=== PATIENT | male | born 1960 | race Caucasian/White ===

== ENCOUNTER 2017-01-23 08:56 | Emergency (ER) | payer BC ==
[~2017-01-23] VITALS: Ht 175.3 cm; Wt 87.8 kg
[~2017-01-23 08:56] MED LIST: CYAN10004 PO; HYDR2TAB48 PO; LORA-741 PO; MULT-506 PO; OMEG10007 PO; SERT1TAB71 PO; TRAM-10 PO; [UNRECOGNIZED DRUG - CODE] PO
[2017-01-23 09:00] VITALS: TEMP 37.1; Ht 175.3 cm; Wt 87.8 kg
[2017-01-23] MEDS ORDERED: SODIUM CHLORIDE 0.9% 1000ML 1,000 ML IV ONE (09:31)
[2017-01-23] MEDS ORDERED: SODIUM CHLORIDE 0.9% 1000ML 1,000 ML IV STA (09:31)
--- NOTE | 2017-01-23 09:31 | EMERGENCY ROOM VISIT NOTE ---
History Report prepared by Erik: Marga Henley Under the Supervision of: Dr. Cali An M.D. First contact with patient: 09:18 Chief Complaint: RIB PAIN Stated Complaint: RIBS HURT History of Present Illness The patient is a 56 year old male who presents to the Emergency Room with complaints of constant bilaterally rib pain with deep breathing beginning last night. The patient states that he was going to bed when the patient states the pain began. 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 The patient states that he has not been lifting more than usual. He denies a history of cardiac issues, inhaler use, blood clot history, history of collapsed lungs or family history of clots. The patient is a current smoker. He notes he recently had a stress test that was normal. Source of History: patient Onset: last night Position: other (bilateral ribs) Timing: constant Modifying Factors (Worsening): breathing Note: He denies a history of cardiac issues, inhaler use, blood clot history, history of collapsed lungs or family history of clots. Review of Systems See HPI for pertinent positives & negatives. A total of 10 systems reviewed and were otherwise negative. Past Medical & Surgical Medical Problems: (1) Hypertension Old medical records were reviewed. Nurse's notes were reviewed and I agree with. No history of cardiac disease or blood clots Family History Heart disease Hypertension Social History Smoking Status: Current Every Day Smoker Alcohol Use: none Marital Status: Housing Status: lives with significant other Occupation Status: employed Current/Historical Medications Scheduled Atorvastatin (Lipitor), 20 MG PO QPM Bupropion Hcl (Wellbutrin Xl), 1 TAB PO DAILY Lisinopril (Zestril), 20 MG PO DAILY Multivitamin (Multivitamin), 1 TAB PO QAM Sertraline Hcl (Zoloft), 50 MG PO QAM Allergies Coded Allergies: No Known Allergies (Unverified , 01/23/17) Physical Exam Vital Signs Date Time Temp Pulse Resp B/P (MAP) Pulse Ox O2 Delivery O2 Flow Rate FiO2 01/23/17 13:08 78 17 133/81 96 01/23/17 12:07 75 20 141/80 95 Room Air 01/23/17 10:38 78 16 140/79 93 Room Air 01/23/17 09:28 100 01/23/17 09:00 37.1 101 16 141/82 94 Room Air Physical Exam General: Well developed well nourished in no acute distress non ill appearing middle age male, breathing comfortably on room air. Normal speech HEENT: Normal cephalic atraumatic. Pupils are equal round and reactive to light. Extraocular movements are intact. Oropharynx is pink with moist mucous membranes. No swelling of the mouth lips or tongue. Neck: Supple with a midline trachea. No meningeal signs or stiffness, no JVD or bruits. No Stridor. Chest: Clear to auscultation bilaterally. No wheezes or rhonchi. No increased work of breathing. Heart: regular rate and rhythm. Abdomen: Soft nontender, nondistended without rebound guarding or rigidity. Extremities: No cyanosis clubbing or edema. No calf tenderness or assymetry Spine/Back. Non tender to palpation. No CVA tenderness Skin: Good turgor without rashes. Neurologic exam: Cranial nerves two through 12 are intact. Motor and sensation are intact and symmetrical throughout. Medical Decision & Procedures ER Provider Diagnostic Interpretation: Radiology results as stated below per my review and radiologist interpretation: CHEST ONE VIEW PORTABLE CLINICAL HISTORY: Chest pain. Rib pain. COMPARISON STUDY: Chest radiograph July 28, 2015. FINDINGS: Lung volumes are normal. Lungs are clear. There is no pneumothorax or pleural effusion. Cardiac size is at the upper limits of normal. There is no evidence of pulmonary edema. IMPRESSION: No acute cardiopulmonary findings. Electronically signed by: Charlie Viramontes M.D. 01/23/2017 10:03 AM Dictated Date/Time: 01/23/2017 9:[address] ANGIOGRAM OF THE CHEST CLINICAL HISTORY: Atypical chest pain. COMPARISON STUDY: Chest x-ray dated 01/23/2017. TECHNIQUE: Following the IV administration of 93 cc of Optiray 320, CT angiogram of the chest was performed from the upper abdomen to the thoracic inlet utilizing the pulmonary embolus protocol. Images are reviewed in the axial, sagittal, and coronal planes. 3-D MIPS images are created and assessed. IV contrast was administered without complication. CT DOSE: 344.18 mGy.cm FINDINGS: Thyroid: Imaged portions of the thyroid gland are normal in size and attenuation. Thoracic aorta: There is atherosclerotic calcification of the thoracic aorta, which is normal in caliber and demonstrates standard 3-vessel arch anatomy. No dissection is seen. Pulmonary vasculature: The pulmonary trunk is dilated, measuring 3.2 cm in diameter. This suggests pulmonary artery hypertension. There are no filling defects identified in main, lobar, or segmental pulmonary branches to suggest pulmonary embolus. Heart: The heart is enlarged and without pericardial effusion. There are scattered coronary artery calcifications. Lungs and pleural spaces: There is no airspace consolidation typical for pneumonia or pleural effusion. Dependent atelectasis is noted. Minimal secretions are seen within the distal trachea. Mediastinum: There is mediastinal lymphadenopathy. An enlarged AP window node on image #176 measures 1.4 cm short axis. A right paratracheal node image #173 measures 1.5 cm in short axis. A subcarinal node on image #136 measures 2.4 cm in short axis. There are calcification containing prevascular nodes. Fiona: Clear. Axillae: There is no axillary lymphadenopathy. Upper abdomen: There is a small hiatal hernia. A mildly enlarged gastrohepatic lymph node is seen in July 14 and measures 1.2 x 1.3 cm. Partially visualized upper abdominal viscera is otherwise within normal limits. Skeletal structures: The skeletal structures are osteopenic. Advanced arthritic change is seen in the left shoulder. Degenerative change is also seen throughout the thoracic spine. No lytic or blastic bony lesions are seen. IMPRESSION: 1. There is no evidence of pulmonary embolus in the main, lobar, or segmental pulmonary arteries. 2. Cardiomegaly with evidence of pulmonary artery hypertension. 3. There is no airspace consolidation or pleural effusion. Dependent atelectasis is observed. 4. Mildly enlarged mediastinal lymph nodes are of indeterminant etiology and significance. There is also mildly enlarged gastrohepatic node which is seen in the partially imaged upper abdomen. Clinical correlation will be essential. Electronically signed by: Richie Rausch M.D. 01/23/2017 12:04 PM Dictated Date/Time: 01/23/2017 11:57 AM Laboratory Results 01/23/17 09:35 Red Blood Count 4.58, Mean Corpuscular Volume 86.9, Mean Corpuscular Hemoglobin 29.7, Mean Corpuscular Hemoglobin Concent 34.2, Mean Platelet Volume 10.5, Neutrophils (%) (Auto) 73.3, Lymphocytes (%) (Auto) 17.5, Monocytes (%) (Auto) 8.0, Eosinophils (%) (Auto) 0.9, Basophils (%) (Auto) 0.1, Neutrophils # (Auto) 6.37, Lymphocytes # (Auto) 1.52, Monocytes # (Auto) 0.70, Eosinophils # (Auto) 0.08, Basophils # (Auto) 0.01 01/23/17 09:35 Test 01/23/17 09:35 01/23/17 09:41 White Blood Count 8.70 K/uL (4.8-10.8) Red Blood Count 4.58 M/uL (4.7-6.1) Hemoglobin 13.6 g/dL (14.0-18.0) Hematocrit 39.8 % (42-52) Mean Corpuscular Volume 86.9 fL (80-100) Mean Corpuscular Hemoglobin 29.7 pg (25-34) Mean Corpuscular Hemoglobin Concent 34.2 g/dl (32-36) Platelet Count 216 K/uL (130-400) Mean Platelet Volume 10.5 fL (7.4-10.4) Neutrophils (%) (Auto) 73.3 % Lymphocytes (%) (Auto) 17.5 % Monocytes (%) (Auto) 8.0 % Eosinophils (%) (Auto) 0.9 % Basophils (%) (Auto) 0.1 % Neutrophils # (Auto) 6.37 K/uL (1.4-6.5) Lymphocytes # (Auto) 1.52 K/uL (1.2-3.4) Monocytes # (Auto) 0.70 K/uL (0.11-0.59) Eosinophils # (Auto) 0.08 K/uL (0-0.5) Basophils # (Auto) 0.01 K/uL (0-0.2) RDW Standard Deviation 43.4 fL (36.4-46.3) RDW Coefficient of Variation 13.7 % (11.5-14.5) Immature Granulocyte % (Auto) 0.2 % Immature Granulocyte # (Auto) 0.02 K/uL (0.00-0.02) Prothrombin Time 11.4 SECONDS (9.0-12.0) Prothromb Time International Ratio 1.1 (0.9-1.1) Activated Partial Thromboplast Time 34.7 SECONDS (21.0-31.0) Partial Thromboplastin Ratio 1.3 Anion Gap 8.0 mmol/L (3-11) Est Creatinine Clear Calc Drug Dose 122.1 ml/min Estimated GFR () 119.7 Estimated GFR (Non- 103.3 BUN/Creatinine Ratio 13.0 (10-20) Calcium Level 8.4 mg/dl (8.5-10.1) Total Bilirubin 0.6 mg/dl (0.2-1) Direct Bilirubin 0.1 mg/dl (0-0.2) Aspartate Amino Transf (AST/SGOT) 13 U/L (15-37) Alanine Aminotransferase (ALT/SGPT) 27 U/L (12-78) Alkaline Phosphatase 75 U/L (45-117) Total Creatine Kinase 62 U/L (39-308) Creatine Kinase MB < 0.5 ng/ml (0.5-3.6) Creatine Kinase MB Ratio (0-3.0) Total Protein 7.8 gm/dl (6.4-8.2) Albumin 3.7 gm/dl (3.4-5.0) Lipase 91 U/L (73-393) Bedside D-Dimer > 450 ng/mlFEU (0-450) Bedside Troponin I 0.000 ng/ml (0-0.045) Laboratory studies as stated above per my review. Medications Administered Medications (Trade) Dose Ordered Sig/Vira Route Start Time Stop Time Status Last Admin Dose Admin Sodium Chloride 1,000 ml @ 999 mls/hr Q1H1M STAT IV 01/23/17 09:31 01/23/17 10:31 DC 01/23/17 09:31 999 MLS/HR Sodium Chloride 1,000 ml @ 150 mls/hr Q6H40M ONCE IV 01/23/17 09:31 01/23/17 13:17 DC 01/23/17 09:31 150 MLS/HR ECG Indication: other (rib pain) Rate (beats per minute): 87 Rhythm: normal sinus Findings: no acute ischemic change, no ectopy, other (early repolarization changes present on previous) Change: no significant change (from 07/25/15) ED Course 0923: Past medical records reviewed. The patient was evaluated in room B8, and a complete history and physical examination were performed. 0931: Sodium Chloride 1,000 ml @ 150 mls/hr IV, Sodium Chloride 1,000 ml @ 999 mls/hr IV. 1016: I reevaluated the patient. His D Dimer is elevated so CT scan was ordered. 1234: The patient is resting comfortably. I discussed his test results and lymph nodes with him. 1245: Upon reevaluation, the patient is hemodynamically stable. I discussed the results and treatment plan with him. He verbalized agreement of the treatment plan. The patient was discharged home. Medical Decision Differentials include, but are not limited to; musculoskeletal pain, PE, cardiac disease, pneumothorax, electrolyte or metabolic abnormalities. Medication Reconciliation: I attest that I have personally reviewed the patient' s current medication list. Blood pressure Screening: Patient was found to have normal blood pressure on screening and does not require follow-up. This patient comes in as described above. He was placed in room B9. Here for treatment and evaluation of pain bilaterally in his ribs. It is worse with taking a deep breath and he appears in no distress. 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 There is no central chest pain. IV access established and EKG and blood work were obtained as well as a chest x-ray. Chest x-ray does not show any evidence suggest congestive heart failure, pneumonia, or pneumothorax. His cardiac enzymes are normal and his symptoms are atypical for cardiac disease. He has no acute electrolyte or metabolic abnormalities and has nothing to suggest liver or gallbladder or pancreas disease. His d-dimer is elevated and in light of this, I did do a chest CT there is no evidence of PE. He did declined any pain medication seems comfortable while he is here. I do think that this is most likely musculoskeletal. He should use ibuprofen or another NSAID if needed for pain or inflammation. Return if: increasing pain, worsening of symptoms, shortness of breath, any new problems or concerns. Impression Primary Impression: Acute chest pain Additional Impression: Rib pain Scribe Attestation The scribe's documentation has been prepared under my direction and personally reviewed by me in its entirety. I confirm that the note above accurately reflects all work, treatment, procedures, and medical decision making performed by me. Departure Information Dispostion Home / Self-Care Referrals Krista Alonzo C.R.N.P. (PCP) Forms HOME CARE DOCUMENTATION FORM, IMPORTANT VISIT INFORMATION, WORK / SCHOOL INSTRUCTIONS Patient Instructions My [facility] Additional Instructions Rest. Drink plenty of fluids. Return if: Increasing pain, worsening of symptoms, shortness of breath, fever or chills, any new problems or concerns Follow-up with your doctor this week for recheck, keep your appointment on Monday. Your lymph nodes are mildly enlarged in your chest and you may need further testing or monitoring for this and ensure that you see your doctor for this. Problem Qualifiers
[2017-01-23 10:00] LABS: BASO % 0.1 %; BASO ABS # 0.01 K/uL (0-0.2); COMPLETE YES; EOS % 0.9 %; HEMATOCRIT 39.8 % (42-52); IG% 0.2 %; LYMPH % 17.5 %; LYMPH ABS # 1.52 K/uL (1.2-3.4); MEAN CELL VOLUME 86.9 fL (80-100); MEAN CORPUSCULAR HEMOGLOBIN 29.7 pg (25-34); MEAN CORPUSCULAR HGB CONC 34.2 g/dl (32-36); MEAN PLATELET VOLUME 10.5 fL (7.4-10.4); NEUT % 73.3 %; PLATELET COUNT 216 K/uL (130-400); RED BLOOD COUNT 4.58 M/uL (4.7-6.1)
--- NOTE | 2017-01-23 10:04 | DIAGNOSTIC IMAGING REPORT ---
CHEST ONE VIEW PORTABLE CLINICAL HISTORY: Chest pain. Rib pain. COMPARISON STUDY: Chest radiograph July 28, 2015. FINDINGS: Lung volumes are normal. Lungs are clear. There is no pneumothorax or pleural effusion. Cardiac size is at the upper limits of normal. There is no evidence of pulmonary edema. IMPRESSION: No acute cardiopulmonary findings. Electronically signed by: Charlie Viramontes M.D. 01/23/2017 10:03 AM Dictated Date/Time: 01/23/2017 9:51 AM
[2017-01-23 10:09] LABS: INR 1.1 (0.9-1.1); PARTIAL THROMBOPLASTIN RATIO 1.3; PROTHROMBIN TIME (PATIENT) 11.4 SECONDS (9.0-12.0)
[2017-01-23] MEDS ORDERED: LISI40TA PO (10:17)
[2017-01-23 10:21] LABS: ALT/SGPT 27 U/L (12-78); AST/SGOT 13 U/L (15-37); BLOOD UREA NITROGEN 10 mg/dl (7-18); CALCIUM 8.4 mg/dl (8.5-10.1); CARBON DIOXIDE 27 mmol/L (21-32); CHLORIDE 102 mmol/L (98-107); CREATININE 0.75 mg/dl (0.60-1.40); GLUCOSE 108 mg/dl (70-99); POTASSIUM 3.9 mmol/L (3.5-5.1); SODIUM 137 mmol/L (136-145)
[2017-01-23] MEDS ORDERED: ATOR-22 PO (10:24)
[2017-01-23] MEDS ORDERED: BUPRTAB PO (10:24)
[2017-01-23 10:26] LABS: ALKALINE PHOSPHATASE 75 U/L (45-117)
[2017-01-23] MEDS ORDERED: OPTIRAY 320 IV PRN (11:15)
--- NOTE | 2017-01-23 12:05 | DIAGNOSTIC IMAGING REPORT ---
CT ANGIOGRAM OF THE CHEST CLINICAL HISTORY: Atypical chest pain. COMPARISON STUDY: Chest x-ray dated 01/23/2017. TECHNIQUE: Following the IV administration of 93 cc of Optiray 320, CT angiogram of the chest was performed from the upper abdomen to the thoracic inlet utilizing the pulmonary embolus protocol. Images are reviewed in the axial, sagittal, and coronal planes. 3-D MIPS images are created and assessed. IV contrast was administered without complication. CT DOSE: 344.18 mGy.cm FINDINGS: Thyroid: Imaged portions of the thyroid gland are normal in size and attenuation. Thoracic aorta: There is atherosclerotic calcification of the thoracic aorta, which is normal in caliber and demonstrates standard 3-vessel arch anatomy. No dissection is seen. Pulmonary vasculature: The pulmonary trunk is dilated, measuring 3.2 cm in diameter. This suggests pulmonary artery hypertension. There are no filling defects identified in main, lobar, or segmental pulmonary branches to suggest pulmonary embolus. Heart: The heart is enlarged and without pericardial effusion. There are scattered coronary artery calcifications. Lungs and pleural spaces: There is no airspace consolidation typical for pneumonia or pleural effusion. Dependent atelectasis is noted. Minimal secretions are seen within the distal trachea. Mediastinum: There is mediastinal lymphadenopathy. An enlarged AP window node on image #176 measures 1.4 cm short axis. A right paratracheal node image #173 measures 1.5 cm in short axis. A subcarinal node on image #136 measures 2.4 cm in short axis. There are calcification containing prevascular nodes. Fiona: Clear. Axillae: There is no axillary lymphadenopathy. Upper abdomen: There is a small hiatal hernia. A mildly enlarged gastrohepatic lymph node is seen in July 14 and measures 1.2 x 1.3 cm. Partially visualized upper abdominal viscera is otherwise within normal limits. Skeletal structures: The skeletal structures are osteopenic. Advanced arthritic change is seen in the left shoulder. Degenerative change is also seen throughout the thoracic spine. No lytic or blastic bony lesions are seen. IMPRESSION: 1. There is no evidence of pulmonary embolus in the main, lobar, or segmental pulmonary arteries. 2. Cardiomegaly with evidence of pulmonary artery hypertension. 3. There is no airspace consolidation or pleural effusion. Dependent atelectasis is observed. 4. Mildly enlarged mediastinal lymph nodes are of indeterminant etiology and significance. There is also mildly enlarged gastrohepatic node which is seen in the partially imaged upper abdomen. Clinical correlation will be essential. Electronically signed by: Richie Rausch M.D. 01/23/2017 12:04 PM Dictated Date/Time: 01/23/2017 11:57 AM
[2017-01-23 13:08] VITALS: BP 133/81; PULSE 78; O2SAT 96
== END 2017-01-23 13:00 | disposition home or self-care (01) ==
LOC: C.EDB 08:57
DX: R07.9 Chest pain, unspecified (principal); R07.81 Pleurodynia; I10 Essential (primary) hypertension; F17.200 Nicotine dependence, unspecified, uncomplicated; Z79.899 Other long term (current) drug therapy; Z82.49 Family history of ischemic heart disease and other diseases of the circulatory system

== ENCOUNTER → 2017-02-11 | Outpatient (CLI) | payer BC ==
[~2017-02-11] MED LIST changes: +ATOR-22 PO; +BUPRTAB PO; -CYAN10004 PO; -HYDR2TAB48 PO; +LISI40TA PO; -LORA-741 PO; -OMEG10007 PO; -TRAM-10 PO; -[UNRECOGNIZED DRUG - CODE] PO
[2017-02-11 08:44] LABS: ALT/SGPT 44 U/L (12-78); AST/SGOT 15 U/L (15-37); BLOOD UREA NITROGEN 15 mg/dl (7-18); BUN/CREATININE RATIO 17.9 (10-20); CALCIUM 8.9 mg/dl (8.5-10.1); CARBON DIOXIDE 28 mmol/L (21-32); CHLORIDE 103 mmol/L (98-107); CHOLESTEROL 123 mg/dl (0-200); CREATININE 0.81 mg/dl (0.60-1.40); GLUCOSE 135 mg/dl (70-99); POTASSIUM 3.8 mmol/L (3.5-5.1); SODIUM 139 mmol/L (136-145)
[2017-02-11 08:55] LABS: CHOLESTEROL/HDL RATIO 3.7; HDL CHOLESTEROL 33 mg/dl; LDL CHOLESTEROL CALCULATED 79 mg/dl; TRIGLYCERIDES 56 mg/dl (0-150); VERY LOW DENSITY LIPOPROT CALC 11 mg/dl
== END | disposition home or self-care (01) ==
LOC: C.LAB 07:07
PROVIDERS: ATTEND Nurse Practitioner Adult Health
DX: R53.83 Other fatigue (principal); E78.5 Hyperlipidemia, unspecified

== ENCOUNTER → 2017-03-11 | Outpatient (CLI) | payer BC ==
[2017-03-11 08:47] LABS: BASO % 0.3 %; BASO ABS # 0.02 K/uL (0-0.2); COMPLETE YES; EOS % 4.2 %; HEMATOCRIT 41.8 % (42-52); LYMPH % 28.7 %; LYMPH ABS # 1.76 K/uL (1.2-3.4); MEAN CELL VOLUME 86.2 fL (80-100); MEAN CORPUSCULAR HEMOGLOBIN 29.3 pg (25-34); MEAN PLATELET VOLUME 11.3 fL (7.4-10.4); MONO % 9.4 %; NEUT % 57.4 %; PLATELET COUNT 184 K/uL (130-400); RED BLOOD COUNT 4.85 M/uL (4.7-6.1); WHITE BLOOD COUNT 6.14 K/uL (4.8-10.8)
[2017-03-11 09:11] LABS: ALT/SGPT 37 U/L (12-78); AST/SGOT 22 U/L (15-37); BLOOD UREA NITROGEN 23 mg/dl (7-18); BUN/CREATININE RATIO 30.3 (10-20); CALCIUM 9.4 mg/dl (8.5-10.1); CARBON DIOXIDE 28 mmol/L (21-32); CHLORIDE 106 mmol/L (98-107); CREATININE 0.76 mg/dl (0.60-1.40); GLUCOSE 95 mg/dl (70-99); SODIUM 139 mmol/L (136-145)
[2017-03-11 09:12] LABS: ALB/GLOB RATIO 1.1 (0.9-2); ALKALINE PHOSPHATASE 66 U/L (45-117)
[2017-03-11 09:45] LABS: LYME DISEASE AB IGG NEG (NEG); LYME DISEASE AB IGM NEG (NEG)
[2017-03-14 21:35] LABS: VARICELLA ZOS VIR IGM AB <=0.90 (<=0.90)
== END | disposition home or self-care (01) ==
LOC: C.LAB 07:36
PROVIDERS: ATTEND Nurse Practitioner Adult Health
DX: M25.50 Pain in unspecified joint (principal); R59.0 Localized enlarged lymph nodes

== ENCOUNTER → 2017-05-05 | Outpatient (CLI) | payer BC ==
[~2017-05-05] MED LIST changes: +OPTIRAY 320 IV PRN
--- NOTE | 2017-05-05 13:07 | DIAGNOSTIC IMAGING REPORT ---
ADDENDUM Findings should read as follows.: Largest node inferior to the casie is now 8 mm. Electronically signed by: Samuel Edouard M.D. 05/05/2017 1:09 PM Dictated Date/Time: 05/05/2017 1:08 PM ORIGINAL REPORT (CHEST) THORAX WITH CT DOSE: 380.39 mGycm HISTORY: Adenopathy R59.0 Mediastinal lymphadenopathy be done in early april TECHNIQUE: Multiaxial CT images of the chest were performed following the intravenous administration of contrast. A dose lowering technique was utilized adhering to the principles of ALARA. COMPARISON: 01/23/2017 FINDINGS: Large is no evidence of casie region is 8 mm. Largest aortopulmonary window node measures 1.9 cm. Overall volume is diminished. Limited evaluation of the upper abdomen is unremarkable. IMPRESSION: 1. Improved adenopathy with residual kavon change improved in volume by 50%. 2. Lungs remain clear. 3. Basilar atelectatic change in the prior study has resolved. The above report was generated using voice recognition software. It may contain grammatical, syntax or spelling errors. Electronically signed by: Samuel Edouard M.D. 05/05/2017 1:05 PM Dictated Date/Time: 05/05/2017 1:00 PM
== END | disposition home or self-care (01) ==
LOC: C.CTS 12:34
PROVIDERS: ATTEND Internal Medicine Pulmonary Disease
DX: R59.0 Localized enlarged lymph nodes (principal)

== ENCOUNTER 2019-02-27 19:25 | Inpatient (IN) ==
[2019-02-27] MEDS ORDERED: ONDANSETRON INJ 2 MG/ML 2 ML VIAL IV STA (19:38)
[2019-02-27 19:45] LABS: Basophils # (auto) 0.02 K/uL (0-0.2); Basophils % (auto) 0.2 %; Eosinophils # (auto) 0.16 K/uL (0-0.5); Eosinophils % (auto) 1.7 %; Hematocrit (blood only) 40.2 % (42-52); Hemoglobin 13.9 g/dL (14.0-18.0); Immature Granulocytes # (auto) 0.02 K/uL (0.00-0.02); Immature Granulocytes % (auto) 0.2 %; Lymphocytes # (auto) 3.01 K/uL (1.2-3.4); Lymphocytes % (auto) 32.7 %; Mean Corpuscular Hgb Conc 34.6 g/dL (32-36); Mean Corpuscular Volume 86.3 fL (80-100); Mean Platelet Volume 10.9 fL (7.4-10.4); Monocytes # (auto) 1.11 K/uL (0.11-0.59); Monocytes % (auto) 12.1 %; Neutrophils # (auto) 4.89 K/uL (1.4-6.5); Neutrophils % (auto) 53.1 %; Platelet Count 280 K/uL (130-400); RDW Coefficient of Variation 13.9 % (11.5-14.5); RDW Standard Deviation 43.2 fL (36.4-46.3); Red Blood Count 4.66 M/uL (4.7-6.1); White Blood Count 9.21 K/uL (4.8-10.8)
[2019-02-27] MEDS ORDERED: SODIUM CHLORIDE 0.9% 1000ML 1,000 ML IV SCH (19:45)
[2019-02-27 20:04] LABS: Alanine Aminotransferase 35 U/L (12-78); Albumin Level 4.5 gm/dl (3.4-5.0); Aspartate Aminotransferase 23 U/L (15-37); BUN Creatinine Ratio 10.7 (10-20); Blood Urea Nitrogen 23 mg/dl (7-18); Calcium 9.5 mg/dl (8.5-10.1); Carbon Dioxide 26 mmol/L (21-32); Chloride 103 mmol/L (98-107); Est GFR (African American) 37.4; Est GFR (Non-African American) 32.2; Glucose 116 mg/dl (70-99); Magnesium 2.3 mg/dl (1.8-2.4); Potassium 3.5 mmol/L (3.5-5.1); Sodium 137 mmol/L (136-145)
[2019-02-27 20:14] LABS: Albumin Globulin Ratio 1.2 (0.9-2); Alkaline Phosphatase 73 U/L (45-117); Bilirubin,Total 0.4 mg/dl (0.2-1); Globulin 3.7 gm/dl (2.5-4.0); Total Protein 8.2 gm/dl (6.4-8.2); Troponin I < 0.015 ng/ml (0-0.045)
[2019-02-27 20:27] LABS: T4 Free Thyroxine 1.03 ng/dl (0.8-1.6)
[2019-02-27 20:56] LABS: Partial Thromboplastin Ratio 1.1; Partial Thromboplastin Time 29.8 Seconds (21.0-31.0)
[2019-02-27] MEDS ORDERED: SODIUM CHLORIDE 0.9% 1000ML 1,000 ML IV ONE (21:23)
--- NOTE | 2019-02-27 23:08 | History & Physical Report ---
Date of Service February 27, 2019 Assessment & Plan (1) Near syncope: Near syncopal episode, likely vasovagal associated with decreased volume state and dehydration Present on Admission?: Yes (2) Acute kidney injury: Acute kidney injury/moderate dehydration- Creatinine upon admission was 2.19, with baseline 0.90. Aggressively rehydrating with IV fluids in the ED, and continue once admitted. Repeat laboratories in a.m. Hold lisinopril and NSAIDs ibuprofen for now. Present on Admission?: Yes (3) Dehydration: See above. Present on Admission?: Yes (4) Lumbar postlaminectomy syndrome: Patient on some days tends to use significant amounts of ibuprofen, which when combined with the VENKATA inhibitor lisinopril and relative dehydration, resulted in acute kidney injury today. He has been prescribed gabapentin 300 mg p.o. 3 times daily, but he only takes it in the morning. My advice is to take the gabapentin as directed at 300 mg p.o. 3 times daily, and minimize ibuprofen usage. Present on Admission?: Yes (5) Hyperlipidemia: Continue atorvastatin 20 mg every morning Present on Admission?: Yes (6) Hypertension: Will hold lisinopril 40 mg every morning due to acute kidney injury Present on Admission?: Yes (7) Depression: Continue sertraline 50 mg every morning. Present on Admission?: Yes History of Present Illness Chief Complaint: The patient presents to the emergency department with an episode of dizziness and nearly passing out. Primary Care Provider: Flaquito Worley MD The patient is a 58-year-old male with a past medical history including hyperlipidemia, chronic low back pain, hypertension and depression, who initially presented to the emergency department on 02/16/2019, with similar symptoms as of today, with lightheadedness, dizziness and near syncope. 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 He reports that upon awakening this morning he felt normal. When he went to work, he did take ibuprofen 600 mg 2 times, and was trying to keep up with his water intake on a hot day outside, and appeared to be significantly dehydrated upon arrival. He also takes lisinopril daily as directed. Gabapentin prescription has been written for 300 mg 3 times daily, but he only takes it in the morning. Allergies Allergy/AdvReac Type Severity Reaction Status Date / Time No Known Allergies Allergy Verified 02/27/19 20:06 Home Medications Home Medications Medication Instructions Recorded Confirmed Type atorvastatin 20 mg PO QAM 08/15/18 02/27/19 History lisinopril 40 mg PO QAM 08/15/18 02/27/19 History multivitamin 1 tab PO QAM 08/15/18 02/27/19 History sertraline 50 mg PO QAM 08/15/18 02/27/19 History gabapentin 300 mg PO QAM 02/16/19 02/27/19 History ibuprofen [Advil] 400 - 600 mg PO Q6H PRN 02/16/19 02/27/19 History Past Med/Surg History Medical History Lumbar disc herniation (Chronic) Lumbar radiculopathy (Chronic) Lumbar postlaminectomy syndrome (Chronic) Hyperlipidemia (Chronic) Hypertension (Chronic) Depression (Chronic) Degenerative disc disease (Chronic) Osteoarthritis (Chronic) Hypertension (Chronic) Neck pain (Resolved) Tendinitis, de Quervain's (Resolved) Surgical History History of colonoscopy (Resolved) History of lumbar discectomy (Resolved) History of repair of left rotator cuff (Resolved) History of tonsillectomy and adenoidectomy (Resolved) History of tooth extraction (Resolved) wisdom teeth Social History Preferred Language: Dominican Communication Ability: Effective Visual Impairment: Limited Hearing Ability: Normal Kinesiology Internship Required: No Beliefs That Will Affect Care: None marital status: Current Living Situation: Spouse Current Living Situation Comment: lives with and kids current occupational status: employed 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 Other Information That Helps Us Care for You: No Feels Safe at Home: Yes Safety Concerns: Feels Safe At This Time Smoking Status: Current every day smoker Tobacco Type: cigarettes Cigarettes Per Day: 20 Do You Dip or Chew Tobacco: No Second Hand Exposure: Yes (parents smoked) Hx Alcohol Use: No Hx Substance Use: No Review of Systems Review of Systems: The patient denies chest pain, palpitations, shortness of breath, dyspnea on exertion, cough, lower extremity swelling, sore throat, fevers, chills, sweats, nausea, vomiting, diarrhea , constipation, abdominal pain, pelvic pain, blood in urine or stool, dysuria, urinary frequency or urgency, headache, memory loss, loss of consciousness, rash, abnormal bruising or bleeding, focal or generalized weakness, numbness or tingling in arms or legs, generalized arthralgias or myalgias, neck pain, or night sweats. The review of systems is otherwise negative other than for that already noted above, and at least 10 systems have been reviewed. Physical Exam Physical Exam: The patient is awake, alert and oriented 3, well developed and well nourished, normocephalic and atraumatic, lying in bed and in no acute distress. HEENT--PERRL, EOMI, mucous membranes and oropharynx dry. Neck--supple. No JVD. No bruits. Thyroid normal, trachea midline, no ad enopathy. Heart--normal S1 and S2. No murmurs, rubs or gallops. Lungs--clear bilaterally, no respiratory distress, no accessory muscle use. Abdomen--normal bowel sounds and soft. Nontender. Nondistended, no hernias or masses, no organomegaly. Extremities--no cyanosis or clubbing. No edema. There are good distal pulses b/l. Dermatologic--normal skin turgor, normal color, no abnormal lymph nodes, no rash. Neurologic--cranial nerves II through XII grossly intact. Rheumatologic--normal range of motion. Psychiatric--normal affect. Results & Data Vital Signs (Past 12 Hours) Vital Signs Temp Pulse Pulse Resp BP BP Pulse Ox 02/27/19 21:07 61 16 97/53 L 93 02/27/19 20:06 57 L 16 96/49 L 92 02/27/19 19:48 61 16 91 02/27/19 19:30 98.4 F 61 16 86/50 L 91 Laboratory Results Laboratory Results WBC 9.21 K/uL (4.8-10.8) 02/27/19 19:10 RBC 4.66 M/uL (4.7-6.1) L 02/27/19 19:10 Hgb 13.9 g/dL (14.0-18.0) L 02/27/19 19:10 Hct 40.2 % (42-52) L 02/27/19 19:10 MCV 86.3 fL (80-100) 02/27/19 19:10 MCH 29.8 pg (25-34) 02/27/19 19:10 MCHC 34.6 g/dL (32-36) 02/27/19 19:10 RDW Std Deviation 43.2 fL (36.4-46.3) 02/27/19:10 RDW Coeff of Bella 13.9 % (11.5-14.5) 02/27/19 19:10 Plt Count 280 K/uL (130-400) 02/27/19 19:10 MPV 10.9 fL (7.4-10.4) H 02/27/19 19:10 Immature Gran % (Auto) 0.2 % 02/27/19 19:10 Neut % (Auto) 53.1 % 02/27/19 19:10 Lymph % (Auto) 32.7 % 02/27/19 19:10 [place] % (Auto) 12.1 % 02/27/19 19:10 Eos % (Auto) 1.7 % 02/27/19 19:10 Baso % (Auto) 0.2 % 02/27/19 19:10 Immature Gran # (Auto) 0.02 K/uL (0.00-0.02) 02/27/19 19:10 Neut # (Auto) 4.89 K/uL (1.4-6.5) 02/27/19 19:10 Lymph # (Auto) 3.01 K/uL (1.2-3.4) 02/27/19 19:10 [place] # (Auto) 1.11 K/uL (0.11-0.59) H 02/27/19 19:10 Eos # (Auto) 0.16 K/uL (0-0.5) 02/27/19 19:10 Baso # (Auto) 0.02 K/uL (0-0.2) 02/27/19 19:10 APTT 29.8 Seconds (21.0-31.0) 02/27/19 20:31 PTT Ratio 1.1 02/27/19 20:31 Sodium 137 mmol/L (136-145) 02/27/19 19:10 Potassium 3.5 mmol/L (3.5-5.1) 02/27/19 19:10 Chloride 103 mmol/L (98-107) 02/27/19 19:10 Carbon Dioxide 26 mmol/L (21-32) 02/27/19 19:10 Anion Gap 8.0 (3-11) 02/27/19 19:10 BUN 23 mg/dl (7-18) H 02/27/19 19:10 Creatinine 2.19 mg/dl (0.6-1.4) H 02/27/19 19:10 Est Cr Clr Drug Dosing 39.0 ml/min 02/27/19 19:10 Est GFR ( Amer) 37.4 02/27/19 19:10 Est GFR (Non-Af Amer) 32.2 02/27/19 19:10 BUN/Creatinine Ratio 10.7 (10-20) 02/27/19 19:10 Glucose 116 mg/dl (70-99) H 02/27/19 19:10 Calcium 9.5 mg/dl (8.5-10.1) 02/27/19 19:10 Magnesium 2.3 mg/dl (1.8-2.4) 02/27/19 19:10 Total Bilirubin 0.4 mg/dl (0.2-1) 02/27/19 19:10 AST 23 U/L (15-37) 02/27/19 19:10 ALT 35 U/L (12-78) 02/27/19 19:10 Alkaline Phosphatase 73 U/L (45-117) 02/27/19 19:10 Troponin I < 0.015 ng/ml (0-0.045) 02/27/19 19:10 Total Protein 8.2 gm/dl (6.4-8.2) 02/27/19 19:10 Albumin 4.5 gm/dl (3.4-5.0) 02/27/19 19:10 Globulin 3.7 gm/dl (2.5-4.0) 02/27/19 19:10 Albumin/Globulin Ratio 1.2 (0.9-2) 02/27/19 19:10 TSH 6.590 uIu/ml (0.300-4.500) H 02/27/19 19:10 Free T4 1.03 ng/dl (0.8-1.6) 02/27/19 19:10 Code Status & VTE Plan Code Status Full code VTE Prophylaxis Plan VTE Prophylaxis will be ordered: Yes PG Care Time/CCT Total # of Minutes Spent Total Time Spent with Patient: Total time spent is greater than 50% in coordination of care (as documented) at patient's floor/unit and/or counseling patient:
[2019-02-28] MEDS ORDERED: ALUMINUM/MAGNESIUM SUSP 30 ML UDC PO PRN (00:32)
[2019-02-28] MEDS ORDERED: ONDANSETRON INJ 2 MG/ML 2 ML VIAL IV PRN (00:32)
[2019-02-28] MEDS ORDERED: ACETAMINOPHEN 325 MG TAB PO PRN (00:32)
[2019-02-28] MEDS ORDERED: MAGNESIUM HYDROXIDE SUSP 30 ML UDC PO PRN (00:32)
[2019-02-28] MEDS ORDERED: ACETAMINOPHEN 1000 MG/100 ML IV IV PRN (00:32)
[2019-02-28] MEDS: SODIUM CHLORIDE 0.9% 1000ML 1,000 ML IV SCH ×2 (00:33→08:37)
--- NOTE | 2019-02-28 00:59 | Emergency Department Note ---
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 The patient notes that he felt lightheaded prior to the syncope. He notes that a similar episode occurred about 2 weeks ago. The patient complains of nausea/vomiting, noting he had 1 episode of vomiting OIL EXPELLER. He denies any CP, SOB, FELIPE, change in BMs, urinary symptoms, and biting his tongue. The patient notes that he had about 5 16 ounce water bottles today. He reports smoking cigarettes. Home Medications Home Medications Medication Instructions Recorded Confirmed Type atorvastatin 20 mg PO QAM 08/15/18 02/27/19 History lisinopril 40 mg PO QAM 08/15/18 02/27/19 History multivitamin 1 tab PO QAM 08/15/18 02/27/19 History sertraline 50 mg PO QAM 08/15/18 02/27/19 History gabapentin 300 mg PO QAM 02/16/19 02/27/19 History ibuprofen [Advil] 400 - 600 mg PO Q6H PRN 02/16/19 02/27/19 History Allergies Allergy/AdvReac Type Severity Reaction Status Date / Time No Known Allergies Allergy Verified 02/27/19 20:06 Past Med/Surg History Medical History Lumbar disc herniation (Chronic) Lumbar radiculopathy (Chronic) Lumbar postlaminectomy syndrome (Chronic) Hyperlipidemia (Chronic) Hypertension (Chronic) Depression (Chronic) Degenerative disc disease (Chronic) Osteoarthritis (Chronic) Hypertension (Chronic) Neck pain (Resolved) Tendinitis, de Quervain's (Resolved) Surgical History History of colonoscopy (Resolved) History of lumbar discectomy (Resolved) History of repair of left rotator cuff (Resolved) History of tonsillectomy and adenoidectomy (Resolved) History of tooth extraction (Resolved) wisdom teeth Social History Preferred Language: Azeri Communication Ability: Effective Visual Impairment: Limited Hearing Ability: Normal Beliefs That Will Affect Care: None marital status: Current Living Situation: Spouse and Family Current Living Situation Comment: lives with and kids current occupational status: employed 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 and A total of 10 systems reviewed and were otherwise negative Physical Exam Vital Signs Vital Signs - 24 hr 02/27/19 19:30 02/27/19 19:48 02/27/19 20:06 Temperature 36.9 C Temperature Source Oral Sepsis Recent Fever Within 48 Hours No Sepsis New/Unexplained Change in Mental Status No Sepsis Action Taken by Nursing No Action Required Pulse Rate 61 61 Pulse Rate [Apical] 57 L Pulse Rhythm Regular Pulse Rhythm [Apical] Regular Respiratory Rate 16 16 16 Respiratory Effort / Characteristics Non-Labored Spontaneous Non-Labored Respiratory Depth Normal Normal Respiratory Pattern Regular Blood Pressure 86/50 L Blood Pressure [Right Arm] 96/49 L Blood Pressure Mean 62 Blood Pressure Mean [Right Arm] 64 Pulse Oximetry 91 91 92 Oxygen Delivery Method Room Air Room Air Room Air 02/27/19 21:07 02/27/19 23:00 Temperature Temperature Source Sepsis Recent Fever Within 48 Hours Sepsis New/Unexplained Change in Mental Status Sepsis Action Taken by Nursing Pulse Rate Pulse Rate [Apical] 61 89 Pulse Rhythm Pulse Rhythm [Apical] Regular Regular Respiratory Rate 16 16 Respiratory Effort / Characteristics Non-Labored Spontaneous Non-Labored Spontaneous Respiratory Depth Normal Normal Respiratory Pattern Regular Regular Blood Pressure Blood Pressure [Right Arm] 97/53 L 98/57 L Blood Pressure Mean Blood Pressure Mean [Right Arm] 67 70 Pulse Oximetry 93 89 L Oxygen Delivery Method Room Air Room Air GENERAL: Well appearing, well nourished, NAD, non-toxic. EYE EXAM: Normal conjunctiva. PERRL, no anisocoria and EOM's grossly intact w/o pain. OROPHARYNX: Dry mucous membranes. Grossly normal dentition. [No exudate, posterior pharynx is clear, no tonsillar/uvular deviation or swelling.] NECK: Supple, no nuchal rigidity, no adenopathy, non-tender. No signs of meningismus. LUNGS: Clear to auscultation. Normal chest wall mechanics. HEART: NSR, no MRG. ABDOMEN: Abdomen soft, non-tender, normo-active bowel sounds, no masses, no rebound or guarding. BACK: No CVA TTP. SKIN: No rashes and no bruising. UPPER EXTREMITIES: Upper extremities are grossly normal. LOWER EXTREMITIES: No pitting edema. No calf pain. NEURO EXAM: A&O x3, cranial nerves II-XII grossly intact, normal speech, [5/5 strength throughout, no sensory deficits, good finger to nose, no pronator drift], moves all 4 extremities on command w/o issue. Course 1929: The patient was evaluated in room C12A. A complete history and physical exam was performed. 2046: I reassessed the patient. 2122: I spoke with Dr. Hernandez, [facility] hospitalist, about the patients case. He will further evaluate the patient. 2134: I updated the patient. Consultations Consultation #1: I spoke with Dr. Hernandez, [facility] hospitalist, about the patients case. He will further evaluate the patient. Time: 21:23 Administered Medications Sodium Chloride (Nss 1000ml) 1,000 mls @ 125 mls/hr IV .Q8H GAGANDEEP Stop: 03/30/19 00:31 Last Admin: 02/28/19 00:33 Dose: 125 mls/hr Documented by: [id number] Discontinued Medications Sodium Chloride (Nss 1000ml) 1,000 mls @ 999 mls/hr IV .Q1H1M GAGANDEEP Stop: 02/27/19 20:45 Last Infusion: 02/27/19 20:56 Dose: 0 mls/hr Documented by: [id number] Admin: 02/27/19 19:46 Dose: 999 mls/hr Documented by: [id number] Sodium Chloride (Nss 1000ml) 1,000 mls @ 999 mls/hr IV .Q1H1M ONE Stop: 02/27/19 22:23 Last Infusion: 02/27/19 23:18 Dose: 0 mls/hr Documented by: [id number] Admin: 02/27/19 22:09 Dose: 999 mls/hr Documented by: [id number] Ondansetron HCl (Zofran) 4 mg IV NOW STA Stop: 02/27/19 19:39 Last Admin: 02/27/19 19:46 Dose: 4 mg Documented by: [id number] Medical Decision Making Differential Diagnosis Etiologies such as benign positional vertigo, labrynthitis, dehydration, hypovolemia, anemia, tumor, infection, hypoglycemia, electrolyte abnormalities, cardiac sources, toxicological sources, central neurologic process, as well as others were entertained. Medical Records Attestation: I reviewed the patient's medical records. Home Medications Current Medication List: was personally reviewed by me Laboratory Data Attestation: I reviewed the patient's lab results. Result diagrams: 02/27/19 19:10 02/27/19 19:10 Lab Results 02/27/19 02/27/19 02/27/19 Range/Units 19:10 19:10 19:10 WBC 9.21 (4.8-10.8) K/uL RBC 4.66 L (4.7-6.1) M/uL Hgb 13.9 L (14.0-18.0) g/dL Hct 40.2 L (42-52) % MCV 86.3 (80-100) fL MCH 29.8 (25-34) pg MCHC 34.6 (32-36) g/dL RDW Std Deviation 43.2 (36.4-46.3) fL RDW Coeff of Bella 13.9 (11.5-14.5) % Plt Count 280 (130-400) K/uL MPV 10.9 H (7.4-10.4) fL Immature Gran % (Auto) 0.2 % Neut % (Auto) 53.1 % Lymph % (Auto) 32.7 % [place] % (Auto) 12.1 % Eos % (Auto) 1.7 % Baso % (Auto) 0.2 % Immature Gran # (Auto) 0.02 (0.00-0.02) K/uL Neut # (Auto) 4.89 (1.4-6.5) K/uL Lymph # (Auto) 3.01 (1.2-3.4) K/uL [place] # (Auto) 1.11 H (0.11-0.59) K/uL Eos # (Auto) 0.16 (0-0.5) K/uL Baso # (Auto) 0.02 (0-0.2) K/uL APTT Cancelled PTT Ratio Cancelled Sodium 137 (136-145) mmol/L Potassium 3.5 (3.5-5.1) mmol/L Chloride 103 (98-107) mmol/L Carbon Dioxide 26 (21-32) mmol/L Anion Gap 8.0 (3-11) BUN 23 H (7-18) mg/dl Creatinine 2.19 H (0.6-1.4) mg/dl Est Cr Clr Drug Dosing 39.0 ml/min Est GFR ( Amer) 37.4 Est GFR (Non-Af Amer) 32.2 BUN/Creatinine Ratio 10.7 (10-20) Glucose 116 H (70-99) mg/dl Calcium 9.5 (8.5-10.1) mg/dl Magnesium 2.3 (1.8-2.4) mg/dl Total Bilirubin 0.4 (0.2-1) mg/dl AST 23 (15-37) U/L ALT 35 (12-78) U/L Alkaline Phosphatase 73 (45-117) U/L Troponin I < 0.015 (0-0.045) ng/ml Total Protein 8.2 (6.4-8.2) gm/dl Albumin 4.5 (3.4-5.0) gm/dl Globulin 3.7 (2.5-4.0) gm/dl Albumin/Globulin Ratio 1.2 (0.9-2) TSH 6.590 H (0.300-4.500) uIu/ml Free T4 1.03 (0.8-1.6) ng/dl 02/27/19 Range/Units 20:31 WBC (4.8-10.8) K/uL RBC (4.7-6.1) M/uL Hgb (14.0-18.0) g/dL Hct (42-52) % MCV (80-100) fL MCH (25-34) pg MCHC (32-36) g/dL RDW Std Deviation (36.4-46.3) fL RDW Coeff of Bella (11.5-14.5) % Plt Count (130-400) K/uL MPV (7.4-10.4) fL Immature Gran % (Auto) % Neut % (Auto) % Lymph % (Auto) % [place] % (Auto) % Eos % (Auto) % Baso % (Auto) % Immature Gran # (Auto) (0.00-0.02) K/uL Neut # (Auto) (1.4-6.5) K/uL Lymph # (Auto) (1.2-3.4) K/uL [place] # (Auto) (0.11-0.59) K/uL Eos # (Auto) (0-0.5) K/uL Baso # (Auto) (0-0.2) K/uL APTT 29.8 PTT Ratio 1.1 Sodium (136-145) mmol/L Potassium (3.5-5.1) mmol/L Chloride (98-107) mmol/L Carbon Dioxide (21-32) mmol/L Anion Gap (3-11) BUN (7-18) mg/dl Creatinine (0.6-1.4) mg/dl Est Cr Clr Drug Dosing ml/min Est GFR ( Amer) Est GFR (Non-Af Amer) BUN/Creatinine Ratio (10-20) Glucose (70-99) mg/dl Calcium (8.5-10.1) mg/dl Magnesium (1.8-2.4) mg/dl Total Bilirubin (0.2-1) mg/dl AST (15-37) U/L ALT (12-78) U/L Alkaline Phosphatase (45-117) U/L Troponin I (0-0.045) ng/ml Total Protein (6.4-8.2) gm/dl Albumin (3.4-5.0) gm/dl Globulin (2.5-4.0) gm/dl Albumin/Globulin Ratio (0.9-2) TSH (0.300-4.500) uIu/ml Free T4 (0.8-1.6) ng/dl ECG Data Attestation: I personally reviewed and interpreted this ECG as follows: Indication: other (dizziness) Rate (beats per minute): 63 Rhythm: normal sinus Findings: + other (normal interval, normal axis, T-wave flattening in AVL) and + ST elevation (trace ST elevations inferiorly, likely consistent with earlier r epolarization) Blood Pressure Blood Pressure Findings: Low blood pressure Blood Pressure Disposition: further management by hospitalist MDM Narrative The patient is a 58 white male w/ PMHx HTN, HLD, and degenerative disc disease who presents to the ED w/ CC of a 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 Patient was seen and evaluated at the bedside. The patient did relate that he had a syncopal episode today. The patient apparently had been hypotensive prior to arrival but had received some IV fluids. The patient currently does complain of some mild nausea but is otherwise relatively asymptomatic and denies headache chest pains or shortness of breath. The patient does work outdoors extensively. The patient did have blood work completed and was noted to be in [place]. Patient does have more than a doubling of his creatinine. Patient does take lisinopril and does take ibuprofen. Patient was given additional IV fluids. I believe that the patient's syncope was likely related to his dehydration and environmental exposure as he had been outside for much of the day. Patient's EK G is unremarkable at this time. Patient's troponin is not detectable. TSH is elevated but free T4 is within normal limits. Impression & Plan Acute kidney injury, Dehydration, Encounter for smoking cessation counseling Discharge Plan Visit Data *Final* Discharge Date/Time: 02/28/19 00:12 Chief Complaint: Dizziness Stated Complaint: SYNCOPE, DIZZINESS ED Provider: Jovani Heaton Discharge Problem: Acute kidney injury, Dehydration, Encounter for smoking cessation counseling Patient Disposition: Admitted As Inpatient Discharge Instructions Interventions: ED Discharge Assessment Last Done: 02/28/19 00:12 The scribe's documentation has been prepared under my direction and personally reviewed by me in its entirety. I confirm that the note above accurately reflects all work, treatment, procedures, and medical decision making performed by me.
[2019-02-28 05:56] LABS: Basophils # (auto) 0.01 K/uL (0-0.2); Basophils % (auto) 0.2 %; Eosinophils # (auto) 0.25 K/uL (0-0.5); Eosinophils % (auto) 3.8 %; Hematocrit (blood only) 36.1 % (42-52); Hemoglobin 12.3 g/dL (14.0-18.0); Immature Granulocytes # (auto) 0.01 K/uL (0.00-0.02); Immature Granulocytes % (auto) 0.2 %; Lymphocytes # (auto) 1.86 K/uL (1.2-3.4); Lymphocytes % (auto) 28.3 %; Mean Corpuscular Hgb Conc 34.1 g/dL (32-36); Mean Corpuscular Volume 87.2 fL (80-100); Mean Platelet Volume 10.9 fL (7.4-10.4); Monocytes # (auto) 0.69 K/uL (0.11-0.59); Monocytes % (auto) 10.5 %; Neutrophils # (auto) 3.75 K/uL (1.4-6.5); Platelet Count 213 K/uL (130-400); RDW Coefficient of Variation 14.1 % (11.5-14.5); Red Blood Count 4.14 M/uL (4.7-6.1); White Blood Count 6.57 K/uL (4.8-10.8)
[2019-02-28 06:05] LABS: Partial Thromboplastin Ratio 1.2; Partial Thromboplastin Time 31.7 Seconds (21.0-31.0)
[2019-02-28 06:29] LABS: Albumin Level 3.2 gm/dl (3.4-5.0); BUN Creatinine Ratio 22.3 (10-20); Calcium 8.3 mg/dl (8.5-10.1); Creatinine Clr Calc Pharmacy 96.5 ml/min; Est GFR (African American) 115.5; Est GFR (Non-African American) 99.7; Potassium 3.8 mmol/L (3.5-5.1)
[2019-02-28 06:30] LABS: Albumin Globulin Ratio 1.1 (0.9-2); Bilirubin,Total 0.3 mg/dl (0.2-1); Total Protein 6.2 gm/dl (6.4-8.2)
--- NOTE | 2019-02-28 07:39 | Hospitalist Progress Note ---
Date of Service February 28, 2019 Assessment & Plan (1) Near syncope: Near syncopal episode, likely vasovagal associated with decreased volume state and dehydration (2) Acute kidney injury: Acute kidney injury/moderate dehydration- Creatinine upon admission was 2.19, with baseline 0.90. Aggressively rehydrating with IV fluids in the ED, and continue once admitted. Repeat laboratories in a.m. Hold lisinopril and NSAIDs ibuprofen for now. (3) Dehydration: See above. (4) Lumbar postlaminectomy syndrome: Patient on some days tends to use significant amounts of ibuprofen, which when combined with the VENKATA inhibitor lisinopril and relative dehydration, resulted in acute kidney injury today. He has been prescribed gabapentin 300 mg p.o. 3 times daily, but he only takes it in the morning. My advice is to take the gabapentin as directed at 300 mg p.o. 3 times daily, and minimize ibuprofen usage. (5) Hyperlipidemia: Continue atorvastatin 20 mg every morning (6) Hypertension: Will hold lisinopril 40 mg every morning due to acute kidney injury (7) Depression: Continue sertraline 50 mg every morning. Results & Data Vital Signs (Past 12 Hours) Vital Signs Temp Pulse Pulse Pulse Resp BP BP 02/28/19 04:00 36.4 C L 58 L 20 122/66 02/28/19 00:32 36.3 C L 57 L 59 L 18 02/28/19 00:12 63 16 112/58 L 02/27/19 23:48 68 16 02/27/19 23:00 89 16 02/27/19 21:07 61 16 02/27/19 20:06 57 L 16 02/27/19 19:48 61 16 BP Pulse Ox 02/28/19 04:00 94 02/28/19 00:32 101/55 L 93 02/28/19 00:12 92 02/27/19 23:48 109/53 L 91 02/27/19 23:00 98/57 L 89 L 02/27/19 21:07 97/53 L 93 02/27/19 20:06 96/49 L 92 02/27/19 19:48 91 PG Care Time/CCT Total # of Minutes Spent Total Time Spent with Patient: Total time spent is greater than 50% in coordination of care (as documented) at patient's floor/unit and/or counseling patient:
[2019-02-28] MEDS: GABAPENTIN 300 MG CAP PO SCH ×2 (08:41→14:05)
[2019-02-28] MEDS ORDERED: MULTIVITAMIN TAB PO SCH (09:00)
[2019-02-28] MEDS ORDERED: SERTRALINE HCL 50 MG TABLET PO SCH (09:00)
[2019-02-28] MEDS ORDERED: ATORVASTATIN 20 MG TAB PO SCH (09:00)
[2019-02-28 14:24] LABS: Lyme Ab IgG w/WB Rflx Negative (Negative); Lyme Ab IgM w/WB Rflx Negative (Negative)
--- NOTE | 2019-02-28 15:52 | Discharge Summary ---
Date of Service February 28, 2019 Admission HPI Per Admitting Provider The patient is a 58-year-old male with a past medical history including hyperlipidemia, chronic low back pain, hypertension and depression, who initially presented to the emergency department on 02/16/2019, with similar s ymptoms as of today, with lightheadedness, dizziness and near syncope. 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 He reports that upon awakening this morning he felt normal. When he went to work, he did take ibuprofen 600 mg 2 times, and was trying to keep up with his water intake on a hot day outside, and appeared to be significantly dehydrat ed upon arrival. He also takes lisinopril daily as directed. Gabapentin prescription has been written for 300 mg 3 times daily, but he only takes it in the morning. Principal Diagnosis syncope acute renal failure resolved bradycardia Discharge Exam Constitutional well developed and average body habitus Eyes no conjunctival abnormality and no scleral abnormality Neck normal visual inspection and trachea midline Respiratory normal respiratory effort; no respiratory distress Auscultation: lungs clear to auscultation bilaterally Cardiovascular Rate/Rhythm: + bradycardic Heart Sounds: no murmur Gastrointestinal (Abdomen) normal bowel sounds, soft, nontender, no hepatosplenomegaly Musculoskeletal no cyanosis or clubbing, extremities motor strength 5/5 Discharge Data Allergies Allergy/AdvReac Type Severity Reaction Status Date / Time No Known Allergies Allergy Verified 02/27/19 20:06 Consultations 02/27/19 21:23 ED Decision to Admit Stat 02/28/19 00:32 Consult Case Management - Discharge Planning Routine Hospital Course (1) Near syncope: Near syncopal episode, likely vasovagal associated with decreased volume state and dehydration, and associated venkata inhibitor, will stop venkata i and encourage hydration, pt works outside and did notice decreased urine output Bradycardia, pt has relative bradycardia that does augment with exertion, he has no symptoms at rest with heart rate in the 40-50's. His lyme was negative and although tsh was elevated free T4 was normal, will have outpt cardiac event monitor and follow up with pcp, since ssri may cause issue such as this will have him hold his zoloft (2) Acute kidney injury: resolved Hold lisinopril and NSAIDs ibuprofen, encourage tylenol use (3) Dehydration: See above. (4) Lumbar postlaminectomy syndrome: Patient on some days tends to use significant amounts of ibuprofen, which when combined with the VENKATA inhibitor lisinopril and relative dehydration, resulted in acute kidney injury today. He has been prescribed gabapentin 300 mg p.o. 3 times daily, use tylenol and minimize ibuprofen usage. (5) Hyperlipidemia: Continue atorvastatin 20 mg every morning (6) Hypertension: Will hold lisinopril and encourage outpt bp monitoring (7) Depression: discontinue sertraline discuss other options with pcp Total Time Total Time Spent Total Time Spent (In Minutes): greater than 30 minutes were required to prepare discharge Discharge Plan Discharge Items Patient Disposition: Home - Self-Care Reason For Visit: SKI,DEHYDRATION Discharge Diagnosis: passing out, low blood pressure slow heart rate Discharge Goals: Decrease discomfort Activity: Resume your previous activity Non-emergency contact: Primary Care Provider Call non-emergency contact if: you have any medication questions Follow-up/Referrals: [facility] [place] Cardiology [Provider Group] - 02/28/19 4:00 pm (Please, go to the [facility]'s Cardiology Office at 4:00 pm TODAY. *The office is located in [address] of [facility] [address] [facility]. This is the big building next to this [facility]. It is the same office where you see Dr. Worley. THEY WILL PLACE THE 1 WEEK EVENT MONITOR The results from this event monitor will be sent to Dr. Worley.) Flaquito Worley MD [Primary Care Provider] - (Please, follow up at Dr. Worley's office next week. A nurse from this office office will call you regarding the appointment. *If you have any questions, call the office at [phone].) Diet: Regular Addtl Provider Instructions: please drink plenty of liquids and follow up with your primary care doctor this week since your zoloft can cuase a slower heart rate, please do not take it until you have further instructions from your primary care doctor Prescriptions: Continued gabapentin 300 mg capsule 300 mg PO QAM RF: 0 multivitamin Tablet 1 tab PO QAM RF: 0 atorvastatin 20 mg Tablet 20 mg PO QAM RF: 0 Discontinued ibuprofen [Advil] 200 mg Tablet 400 - 600 mg PO Q6H PRN (Reason: Pain) RF: 0 lisinopril 40 mg Tablet 40 mg PO QAM RF: 0 sertraline 50 mg Tablet 50 mg PO QAM RF: 0 Stand-Alone Forms: [facility] Discharge Orders: Discharge Order (Routine); Ordered 02/28/19 Ordered By: Reece Hirsch Admission Data Admit Date/Time: 02/27/19 23:06 Attending Provider: Reece Hirsch Admit Provider: Ronnie Hernandez Primary Care Provider: Flaquito Worley Other Providers: Ronnie Hernandez Service: Telemetry Medical Other ND Date/Time DO NOT enter until pt leaves facility: 02/28/19 15:59
== END 2019-02-28 15:59 | disposition home or self-care (01) | DRG 312 ==
LOC: ED 19:25 → SUATTDRO 23:06 → 2N 23:06

== ENCOUNTER 2021-05-25 17:03 | Observation (INO) ==
[2021-05-25] MEDS ORDERED: DAPTOmycin 300 MG in SYRINGE 0 ML IV ONE (19:25)
[2021-05-25] MEDS ORDERED: cefTRIAXone SODIUM 1,000 MG/50 ML BAG IV STA (19:25)
[2021-05-25] MEDS ORDERED: ONDANSETRON INJ 2 MG/ML 2 ML VIAL IV STA (19:32)
[2021-05-25] MEDS ORDERED: MoRPHine SULFATE 10 MG/ML CARP/VIAL IV STA (19:32)
--- NOTE | 2021-05-25 19:32 | Emergency Department Note ---
Impression & Plan Cellulitis of left foot, Acute pain of left foot, Acute left ankle pain, Failure of outpatient treatment ED Provider Note NAME: DUC MERCADO AGE: 60 SEX: M : 1960 ARRIVES VIA: Walk-In INFORMANT: [Patient] ED PROVIDER(S): [Richie Mclean MD] CHIEF COMPLAINT: Foot and ankle pain HISTORY OF PRESENT ILLNESS: The patient is a 60-year-old male who presents with about 5 days of pain in the left foot and ankle. He was seen in the ED 2 days ago and diagnosed with cellulitis. He was placed on Keflex. The patient did see his doctor's office yesterday. Things have worsened for him. The ankle and foot are now swollen. Moving his toes causes pain. He can barely walk. He thinks the warmth is about the same but the redness may have decreased slightly. Pain is rated as severe. Pain is worse to ambulate. There has been no fever, no cough or congestion. He is vaccinated against COVID-19. The patient believes that he developed an open sore on his foot, this led to the cellulitis. There was no trauma to the ankle or foot. REVIEW OF SYSTEMS: See HPI for pertinent positives and negatives. A total of ten systems were revi ewed and were otherwise negative. PMHx/PSHx: See Below SOCIAL HISTORY: See Below. PHYSICAL EXAM: GENERAL: Patient is in no acute distress. HEENT: No acute trauma, normocephalic atraumatic, mucous membranes moist, no nasal congestion, no scleral icterus. NECK: No stridor, no adenopathy, no meningismus, trachea is midline. LUNGS: Clear to auscultation bilaterally, no wheeze, no rhonchi, breath sounds equal. HEART: Without murmurs gallops or rubs, regular rate and rhythm. ABDOMEN: Soft, nontender, bowel sounds positive, no hernias, no peritonitis. EXTREMITIES: No cyanosis. The patient's left ankle and foot are swollen and erythematous. There is warmth present. There is significant pain to move the left ankle joint. Movement of the toes causes pain across the dorsum of the foot. There are some open lesions to the skin. No drainage. No evidence for ascending red streaks. NEUROLOGIC: Oriented x 3, no acute motor or sensory deficits, no focal weakness. SKIN: No rash, no jaundice, no diaphoresis. DIFFERENTIAL DIAGNOSIS: Septic joint, gout, tenosynovitis, cellulitis, failed outpatient treatment, bacteremia, sepsis, osteomyelitis, among others. EMERGENCY DEPARTMENT COURSE/PROCEDURES: MEDICAL DECISION MAKING: There is no leukocytosis or concerning anemia. There is a normal platelet count. Sed rate was somewhat high at 42, consistent with inflammation/infection. Sodium slightly low but not in need of emergent c orrection. No kidney failure. Lactic acid level was not elevated making sepsis less likely. Uric acid level was not elevated. No worrisome liver enzyme elevation. C-reactive protein was high at 2.31, this is consistent with inflammation/infection. Covid testing returned negative. CT imaging of the left ankle was performed. There was no abscess, no fracture or osteomyelitis. On exam, the patient did have some left ankle and foot swelling. The left ankle seem painful with movement. Cellulitis was evident clinically. The patient received IV Zofran for nausea, IV morphine for pain. He received IV daptomycin and IV ceftriaxone. The patient presents with worsening left ankle and foot pain. He is already on Keflex. I am concerned about failure of outpatient treatment. Certainly, a septic joint must be considered. I do think a hospital stay is warranted. Patient needs IV antibiotic therapy and possibly an orthopedic consult for joint aspiration. I spoke to the patient and case management. The on-call hospitalist was consulted. Past Med/Surg History Medical History (Updated 05/26/21 @ 01:59 by Richie Mclean MD) Anemia Anxiety Arthralgia of multiple sites Cardiomegaly Degenerative disc disease Depression Dyslipidemia History of cigarette smoking Hyperlipidemia Hypertension Hypertension Lumbar disc herniation Lumbar postlaminectomy syndrome Lumbar radiculopathy Mediastinal lymphadenopathy Neck pain Neck pain Nicotine dependence Onychomycosis Osteoarthritis Stenosis of left internal carotid artery Tendinitis, de Quervain's Tinea corporis Surgical History History of colonoscopy History of lumbar discectomy History of repair of left rotator cuff History of tonsillectomy and adenoidectomy History of tooth extraction wisdom teeth Social History Smoking Status: Current every day smoker Tobacco Type: Cigarettes Cigarettes Per Day: 20; Second Hand Exposure: Yes (parents smoked); Tobacco Cessation Education Requested by Patient: No Hx Alcohol Use: No Hx Substance Use: No Preferred Language: Malay Communication Ability: Effective Visual Impairment: Limited Hearing Ability: Normal Commercial Reporter Required: No Beliefs That Will Affect Care: None marital status: Current Living Situation: Spouse Current Living Situation Comment: lives with and kids current occupational status: employed 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 Other Information That Helps Us Care for You: No Feels Safe at Home: Yes Safety Concerns: Feels Safe At This Time Assistive Devices: Denture - Upper and Glasses Allergies Allergies Allergy/AdvReac Type Severity Reaction Status Date / Time No Known Drug Allergies Allergy Unknown Verified 05/25/21 20:28 Home Meds Previous Rx's Medication Instructions Recorded cephalexin 500 mg capsule 500 mg PO Q6H 10 Days #40 cap 05/23/21 tramadol 50 mg tablet 50 mg PO BID PRN #20 tab 05/24/21 Results & Data (ED) Vital Signs Vital Signs - 24 hr 05/25/21 17:17 05/25/21 19:58 Temperature 36.6 C Temperature Source Temporal Artery Scan Pulse Rate 89 Pulse Rate [Right] 68 Pulse Rhythm [Right] Regular Pulse Strength [Right] Normal Respiratory Rate 18 16 Respiratory Effort / Characteristics Non-Labored Spontaneous Non-Labored Spontaneous Respiratory Depth Normal Normal Blood Pressure 160/89 H Blood Pressure [Right Arm] 156/80 H Blood Pressure Mean 112 Blood Pressure Mean [Right Arm] 105 Blood Pressure Position Sitting Pulse Oximetry 95 95 Oxygen Delivery Method Room Air Room Air Sepsis Recent Fever Within 48 Hours No Sepsis New/Unexplained Change in Mental Status N/A Sepsis Action Taken by Nursing No Action Required Home Medications Current Medication List: was personally reviewed by me Laboratory Data Attestation: I reviewed the patient's lab results. Result diagrams: 05/25/21 19:43 05/25/21 19:43 Lab Results 05/25/21 05/25/21 05/25/21 Range/Units 19:43 19:43 19:43 WBC 8.44 (4.8-10.8) K/uL RBC 4.89 (4.7-6.1) M/uL Hgb 14.8 (14.0-18.0) g/dL Hct 42.1 (42-52) % MCV 86.1 (80-100) fL MCH 30.3 (25-34) pg MCHC 35.2 (32-36) g/dL RDW Std Deviation 41.5 (36.4-46.3) fL RDW Coeff of Bella 13.1 (11.5-14.5) % Plt Count 196 (130-400) K/uL MPV 10.8 H (7.4-10.4) fL Immature Gran % (Auto) 0.1 % Neut % (Auto) 75.6 % Lymph % (Auto) 14.1 % [place] % (Auto) 9.6 % Eos % (Auto) 0.6 % Baso % (Auto) 0.0 % Neut # (Auto) 6.38 (1.4-6.5) K/uL Lymph # (Auto) 1.19 L (1.2-3.4) K/uL [place] # (Auto) 0.81 H (0.11-0.59) K/uL Eos # (Auto) 0.05 (0-0.5) K/uL Baso # (Auto) 0.00 (0-0.2) K/uL Immature Gran # (Auto) 0.01 (0.00-0.02) K/uL ESR (0-20) mm/hr Sodium 133 L (136-145) mmol/L Potassium 3.7 (3.5-5.1) mmol/L Chloride 99 (98-107) mmol/L Carbon Dioxide 27 (21-32) mmol/L Anion Gap 7.0 (3-11) BUN 9 (7-18) mg/dl Creatinine 0.66 (0.6-1.4) mg/dl Est Cr Clr Drug Dosing Not Reportable Est GFR ( Amer) 122.7 ml/min Est GFR (Non-Af Amer) 105.8 ml/min BUN/Creatinine Ratio 13.6 (10-20) Glucose 106 H (70-99) mg/dl Lactate 1.1 (0.4-2.0) mmol/L Uric Acid (2.6-7.2) mg/dl Calcium 9.0 (8.5-10.1) mg/dl Total Bilirubin 0.6 (0.2-1) mg/dl AST 11 L (15-37) U/L ALT 32 (12-78) U/L Alkaline Phosphatase 72 (45-117) U/L C-Reactive Protein (0-0.29) mg/dl Total Protein 8.4 H (6.4-8.2) gm/dl Albumin 4.1 (3.4-5.0) gm/dl Globulin 4.3 H (2.5-4.0) gm/dl Albumin/Globulin Ratio 1.0 (0.9-2) COVID-19 Eval Order SARS-CoV-2 (PCR) (Negative) 05/25/21 05/25/21 05/25/21 Range/Units 19:43 19:43 19:50 WBC (4.8-10.8) K/uL RBC (4.7-6.1) M/uL Hgb (14.0-18.0) g/dL Hct (42-52) % MCV (80-100) fL MCH (25-34) pg MCHC (32-36) g/dL RDW Std Deviation (36.4-46.3) fL RDW Coeff of Bella (11.5-14.5) % Plt Count (130-400) K/uL MPV (7.4-10.4) fL Immature Gran % (Auto) % Neut % (Auto) % Lymph % (Auto) % [place] % (Auto) % Eos % (Auto) % Baso % (Auto) % Neut # (Auto) (1.4-6.5) K/uL Lymph # (Auto) (1.2-3.4) K/uL [place] # (Auto) (0.11-0.59) K/uL Eos # (Auto) (0-0.5) K/uL Baso # (Auto) (0-0.2) K/uL Immature Gran # (Auto) (0.00-0.02) K/uL ESR 42 H (0-20) mm/hr Sodium (136-145) mmol/L Potassium (3.5-5.1) mmol/L Chloride (98-107) mmol/L Carbon Dioxide (21-32) mmol/L Anion Gap (3-11) BUN (7-18) mg/dl Creatinine (0.6-1.4) mg/dl Est Cr Clr Drug Dosing Est GFR ( Amer) ml/min Est GFR (Non-Af Amer) ml/min BUN/Creatinine Ratio (10-20) Glucose (70-99) mg/dl Lactate (0.4-2.0) mmol/L Uric Acid 4.3 (2.6-7.2) mg/dl Calcium (8.5-10.1) mg/dl Total Bilirubin (0.2-1) mg/dl AST (15-37) U/L ALT (12-78) U/L Alkaline Phosphatase (45-117) U/L C-Reactive Protein 2.31 H (0-0.29) mg/dl Total Protein (6.4-8.2) gm/dl Albumin (3.4-5.0) gm/dl Globulin (2.5-4.0) gm/dl Albumin/Globulin Ratio (0.9-2) COVID-19 Eval Order Covid19 at [facility] SARS-CoV-2 (PCR) (Negative) 05/25/21 Range/Units 19:50 WBC (4.8-10.8) K/uL RBC (4.7-6.1) M/uL Hgb (14.0-18.0) g/dL Hct (42-52) % MCV (80-100) fL MCH (25-34) pg MCHC (32-36) g/dL RDW Std Deviation (36.4-46.3) fL RDW Coeff of Bella (11.5-14.5) % Plt Count (130-400) K/uL MPV (7.4-10.4) fL Immature Gran % (Auto) % Neut % (Auto) % Lymph % (Auto) % [place] % (Auto) % Eos % (Auto) % Baso % (Auto) % Neut # (Auto) (1.4-6.5) K/uL Lymph # (Auto) (1.2-3.4) K/uL [place] # (Auto) (0.11-0.59) K/uL Eos # (Auto) (0-0.5) K/uL Baso # (Auto) (0-0.2) K/uL Immature Gran # (Auto) (0.00-0.02) K/uL ESR (0-20) mm/hr Sodium (136-145) mmol/L Potassium (3.5-5.1) mmol/L Chloride (98-107) mmol/L Carbon Dioxide (21-32) mmol/L Anion Gap (3-11) BUN (7-18) mg/dl Creatinine (0.6-1.4) mg/dl Est Cr Clr Drug Dosing Est GFR ( Amer) ml/min Est GFR (Non-Af Amer) ml/min BUN/Creatinine Ratio (10-20) Glucose (70-99) mg/dl Lactate (0.4-2.0) mmol/L Uric Acid (2.6-7.2) mg/dl Calcium (8.5-10.1) mg/dl Total Bilirubin (0.2-1) mg/dl AST (15-37) U/L ALT (12-78) U/L Alkaline Phosphatase (45-117) U/L C-Reactive Protein (0-0.29) mg/dl Total Protein (6.4-8.2) gm/dl Albumin (3.4-5.0) gm/dl Globulin (2.5-4.0) gm/dl Albumin/Globulin Ratio (0.9-2) COVID-19 Eval Order SARS-CoV-2 (PCR) NEGATIVE (Negative) Administered Medications Acetaminophen (Acetaminophen 325 Mg Tab) 650 mg PO Q4H PRN PRN Reason: Pain or Fever Stop: 06/24/21 23:00 Last Admin: 05/26/21 01:20 Dose: 650 mg Documented by: [id number] Oxycodone HCl (Oxycodone Hcl Ir 5 Mg Tab (Immediate Release)) 5 mg PO Q6 PRN PRN Reason: Moderate Pain Stop: 06/08/21 23:00 Last Admin: 05/25/21 23:48 Dose: 5 mg Documented by: [id number] Discontinued Medications Acetaminophen (Acetaminophen 325 Mg Tab) 650 mg PO NOW ONE Stop: 05/25/21 21:27 Last Admin: 05/25/21 21:55 Dose: Not Given Documented by: [id number] Ceftriaxone Sodium (Rocephin) 1,000 mg in 50 mls @ 100 mls/hr IV NOW STA Stop: 05/25/21 19:54 Last Infusion: 05/25/21 20:12 Dose: 0 mls/hr Documented by: [id number] Admin: 05/25/21 19:41 Dose: 100 mls/hr Documented by: [id number] Daptomycin 300 mg/ Syringe 6 mls @ 3 mls/min IV NOW ONE; Protocol Stop: 05/25/21 19:26 Last Admin: 05/25/21 19:58 Dose: 3 mls/min Documented by: [id number] Ioversol (Optiray 320 100ml) 93 ml IV ONCE ONE Stop: 05/25/21 20:46 Last Admin: 05/25/21 20:48 Dose: 93 ml Documented by: [id number] Morphine Sulfate (Morphine Sulfate 10 Mg/Ml Carp/Vial) 6 mg IV NOW STA Stop: 05/25/21 19:33 Last Admin: 05/25/21 19:41 Dose: 6 mg Documented by: [id number] Ondansetron HCl (Ondansetron Inj 2 Mg/Ml 2 Ml Vial) 4 mg IV NOW STA Stop: 05/25/21 19:33 Last Admin: 05/25/21 19:41 Dose: 4 mg Documented by: [id number] Imaging Data Radiologist's Impression: Ankle CT 05/25/21 19:25 CT ankle LT w con INDICATION: [place] ^B12B LABS ^pain, fever, swelling TECHNIQUE: Multidetector row helical CT of the left ankle was performed without intravenous contrast. Coronal and sagittal reformations were obtained. Automated dose lowering techniques and/or adjustment according to patient size were utilized for this examination. Comparison: None available at the time of this dictation. FINDINGS: The osseous structures are without fracture or dislocation. No joint effusion is seen. The joint spaces are maintained. Mild soft tissue edema is seen. IMPRESSION: Mild soft tissue edema. No acute bony abnormality or drainable fluid collection. ACT 112: Negative or not required by law. Electronically signed by: Piter Do M.D. 05/25/2021 9:01 PM Discharge Plan Visit Data Chief Complaint: Foot Injury/Pain Stated Complaint: LEFT FOOT PAIN/SWELLING ED Provider: Richie Mclean Discharge Problem: Cellulitis of left foot, Acute pain of left foot, Acute left ankle pain, Failure of outpatient treatment Patient Disposition: Admitted As Inpatient Condition: Fair Discharge Instructions Interventions: ED Discharge Assessment Last Done: 05/25/21 22:20
[2021-05-25 20:08] LABS: Eosinophils # (auto) 0.05 K/uL (0-0.5); Eosinophils % (auto) 0.6 %; Hematocrit (blood only) 42.1 % (42-52); Hemoglobin 14.8 g/dL (14.0-18.0); Immature Granulocytes # (auto) 0.01 K/uL (0.00-0.02); Immature Granulocytes % (auto) 0.1 %; Lymphocytes # (auto) 1.19 K/uL (1.2-3.4); Lymphocytes % (auto) 14.1 %; Mean Corpuscular Hemoglobin 30.3 pg (25-34); Mean Corpuscular Hgb Conc 35.2 g/dL (32-36); Mean Corpuscular Volume 86.1 fL (80-100); Mean Platelet Volume 10.8 fL (7.4-10.4); Monocytes # (auto) 0.81 K/uL (0.11-0.59); Monocytes % (auto) 9.6 %; Neutrophils # (auto) 6.38 K/uL (1.4-6.5); Neutrophils % (auto) 75.6 %; Platelet Count 196 K/uL (130-400); RDW Coefficient of Variation 13.1 % (11.5-14.5); RDW Standard Deviation 41.5 fL (36.4-46.3); Red Blood Count 4.89 M/uL (4.7-6.1); White Blood Count 8.44 K/uL (4.8-10.8)
[2021-05-25 20:26] LABS: C Reactive Protein 2.31 mg/dl (0-0.29); Uric Acid 4.3 mg/dl (2.6-7.2)
[2021-05-25 20:29] LABS: Alanine Aminotransferase 32 U/L (12-78); Albumin Level 4.1 gm/dl (3.4-5.0); Aspartate Aminotransferase 11 U/L (15-37); BUN Creatinine Ratio 13.6 (10-20); Blood Urea Nitrogen 9 mg/dl (7-18); Carbon Dioxide 27 mmol/L (21-32); Chloride 99 mmol/L (98-107); Est GFR (African American) 122.7 ml/min; Est GFR (Non-African American) 105.8 ml/min; Glucose 106 mg/dl (70-99); Potassium 3.7 mmol/L (3.5-5.1); Sodium 133 mmol/L (136-145)
[2021-05-25 20:39] LABS: Alkaline Phosphatase 72 U/L (45-117); Bilirubin,Total 0.6 mg/dl (0.2-1); Globulin 4.3 gm/dl (2.5-4.0); Total Protein 8.4 gm/dl (6.4-8.2)
[2021-05-25] MEDS ORDERED: OPTIRAY 320 100ml IV ONE (20:45)
--- NOTE | 2021-05-25 21:02 | CT Scan Report ---
CT ankle LT w con INDICATION: [place] ^B12B LABS ^pain, fever, swelling TECHNIQUE: Multidetector row helical CT of the left ankle was performed without intravenous contrast. Coronal and sagittal reformations were obtained. Automated dose lowering techniques and/or adjustmen t according to patient size were utilized for this examination. Comparison: None available at the time of this dictation. FINDINGS: The osseous structures are without fracture or dislocation. No joint effusion is seen. The joint spa maggy are maintained. Mild soft tissue edema is seen. IMPRESSION: Mild soft tissue edema. No acute bony abnormality or drainable fluid collection. ACT 112: Negative or not required by law. Electronically signed by: Piter Do M.D. 05/25/2021 9:01 PM
[2021-05-25] MEDS ORDERED: ACETAMINOPHEN 325 MG TAB PO ONE (21:26)
--- NOTE | 2021-05-25 22:21 | History & Physical Report ---
Date of Service May 25, 2021 Assessment & Plan (1) Cellulitis: Plan: As above localized infection of the left lower foot with crossing over lateral malleolus - midfoot pain acute on chronic - elevated ESR and CRP - normal WBC - CT scan not revealing of abscess or effusion - Continue Daptomycin and Rocephin for soft tissue infection- non purulent - If no improvement consider MRI for further evaluation of structures - Elevation rest - Pain control- Tylenol mild to moderate, oxycodone 5mg IR q6 hr prn moderate pain, Morphine 3mg IV q6 prn severe pain - blood cultures pending, no wound to culture (2) Left ankle pain: Plan: As above (3) Left foot pain: Plan: As above- acute on chronic problem with possible localized infection (4) Dyslipidemia: Plan: Not on medications as outpatient noted last lipid panel - Most recent check in January 08- - Trigs 76; cholesterol 188; LDL 127, HDL 46 (5) Hypertension: Plan: Not on outpatient treatment- per PCP notes has been well controlled not on therapy - likely acutely elevated secondary to pain (6) Nicotine dependence: Plan: Continues to smoke - has had chantix in the past - continue with outpatient following History of Present Illness Primary Care Provider: KARI Hills 60 YOM with past medical history of: HTN, HLD, DJD, Smoker, chronic back pain, chronic left foot pain. Patient comes in today for worsening in erythema, swelling, and pain to his left foot and ankle. The patient was originally seen in the [facility] on 05/23/21 for left ankle pain that started on , this started after he was walking around at work and his boots got wet and his feet got wet. He has some chronic tinea pedis and has a possible entry point for infection at his left dorsal surface of his foot. He was given a dose of Rocephin and discharged with oral Keflex after case was discussed with [facility]. The patient followed up with his PCP yesterday and was also recommended rest ice and compression. He has tried to stay off it using crutches. Today he comes in with increase in swelling at the lateral surface of his ankle, he reports decrease flexion and extension secondary to pain. He had a CT scan of the foot and ankle performed in the [facility] that revealed mild soft tissue edema with no osseous structures or joint effusion noted. Patient was given Daptomycin IV and Rocephin IV in the [facility]. Blood cultures were drawn prior to antibiotic dosing. The patient has a normal WBC count, with ESR elevated to 40 and CRP at 2.31. The patient will be admitted to continue antibiotic therapy, Orthopaedics will be consulted as he follows with them for his chronic left foot pain and change from original presentation. Continue with elevation. Patient has received his COVID vaccine and his COVID test is: NEGATIVE on admission Allergies Allergy/AdvReac Type Severity Reaction Status Date / Time No Known Drug Allergies Allergy Unknown Verified 05/25/21 20:28 Home Medications Medication Instructions Recorded Confirmed Type cephalexin 500 mg capsule 500 mg PO Q6H 10 Days #40 cap 05/23/21 05/25/21 Rx tramadol 50 mg tablet 50 mg PO BID PRN #20 tab 05/24/21 05/25/21 Rx Past Med/Surg History Medical History Anemia Anxiety Arthralgia of multiple sites Cardiomegaly Degenerative disc disease Depression Dyslipidemia History of cigarette smoking Hyperlipidemia Hypertension Hypertension Lumbar disc herniation Lumbar postlaminectomy syndrome Lumbar radiculopathy Mediastinal lymphadenopathy Neck pain Neck pain Nicotine dependence Onychomycosis Osteoarthritis Stenosis of left internal carotid artery Tendinitis, de Quervain's Tinea corporis Surgical History History of colonoscopy History of lumbar discectomy History of repair of left rotator cuff History of tonsillectomy and adenoidectomy History of tooth extraction wisdom teeth Social History Smoking Status: Current every day smoker Tobacco Type: Cigarettes Cigarettes Per Day: 20; Second Hand Exposure: Yes (parents smoked); Hx Alcohol Use: No Hx Substance Use: No Preferred Language: Swazi Communication Ability: Effective Visual Impairment: Limited Hearing Ability: Normal Winch Stripper Required: No Beliefs That Will Affect Care: None marital status: Current Living Situation: Spouse Current Living Situation Comment: lives with and kids current occupational status: employed 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 Feels Safe at Home: Yes Assistive Devices: Glasses Review of Systems Review of Systems: REVIEW OF SYSTEMS: Constitutional: No fever, sweats or chills Eyes: No diplopia, no worsening or blurred vision ENT: normal hearing, no trouble swallowing Respiratory: No cough, sputum, dyspnea at rest or on exertion Cardiovascular: No chest pain, tightness or palpitations Abdomen: No pain, nausea, vomiting, diarrhea or constipation Musculoskeletal: (+) joint pain, foot pain, decrease ability to bear weight, NO calf pain, swelling Neurologic: No weakness, numbness/tingling, or balance problems Psychiatric: No anxiety or depression Skin: No rash or itch Physical Exam Physical Exam: PHYSICAL EXAM: General: awake, alert, no apparent distress Head: Normocephalic, atraumatic ENT: PERRL, EOMI, no pharyngeal exudate, mucous membranes moist Neuro: AAO x 3, speech clear and appropriate, strength intact bilaterally 5/5, sensation intact and equal all extremities and dermatomes, no pronator drift Chest: equal rise and fall of the chest, no accessory muscle use, no heaves or thrills, Clear to auscultation, on room air, Cardiac: Regular rate and rhythm, telemetry reviewed, skin warm dry, cap refill <3 seconds, peripheral pulses +2 no JVD, no murmur, no edema GI: NABS x 4 quadrants, soft, nontender to palpation, no rebound, guarding or tenderness : Spontaneously voiding, no pain, no CVA tenderness, MSK focused: Left foot erythema to left lateral ankle to midfoot, localized edema, pain to the midfoot and great toe, pain with flexion and extension- ROM is decreased secondary to pain response, decreased ability for inversion and eversion, pulses strong and palpable, sensation intact. His proximal and surrounding skin marker from previous marking appears decreased Psych: Normal mood and affect Results & Data Results & Data ([facility]) Vital Signs (Past 12 Hours) Vital Signs Temp Pulse Pulse Resp BP BP Pulse Ox 05/25/21 19:58 68 16 156/80 H 95 05/25/21 17:17 36.6 C 89 18 160/89 H 95 Laboratory Results Abnormal lab results 05/25/21 05/25/21 05/25/21 Range/Units 19:43 19:43 19:43 MPV 10.8 H (7.4-10.4) fL Lymph # (Auto) 1.19 L (1.2-3.4) K/uL L[place]kin # (Auto) 0.81 H (0.11-0.59) K/uL ESR 42 H (0-20) mm/hr Sodium 133 L (136-145) mmol/L Glucose 106 H (70-99) mg/dl AST 11 L (15-37) U/L C-Reactive Protein (0-0.29) mg/dl Total Protein 8.4 H (6.4-8.2) gm/dl Globulin 4.3 H (2.5-4.0) gm/dl 05/25/21 Range/Units 19:43 MPV (7.4-10.4) fL Lymph # (Auto) (1.2-3.4) K/uL [place]kin # (Auto) (0.11-0.59) K/uL ESR (0-20) mm/hr Sodium (136-145) mmol/L Glucose (70-99) mg/dl AST (15-37) U/L C-Reactive Protein 2.31 H (0-0.29) mg/dl Total Protein (6.4-8.2) gm/dl Globulin (2.5-4.0) gm/dl Diagnostic Findings Ankle CT 05/25/21 19:25 CT ankle LT w con INDICATION: MN ^B12B LABS ^pain, fever, swelling TECHNIQUE: Multidetector row helical CT of the left ankle was performed without intravenous contrast. Coronal and sagittal reformations were obtained. Automated dose lowering techniques and/or adjustment according to patient size were utilized for this examination. Comparison: None available at the time of this dictation. FINDINGS: The osseous structures are without fracture or dislocation. No joint effusion is seen. The joint spaces are maintained. Mild soft tissue edema is seen. IMPRESSION: Mild soft tissue edema. No acute bony abnormality or drainable fluid collection. ACT 112: Negative or not required by law. Electronically signed by: Piter Do M.D. 05/25/2021 9:01 PM Medications Administered Home Medications cephalexin 500 mg capsule 500 mg PO Q6H 10 Days #40 cap 05/23/21 [Rx Confirmed 05/25/21] tramadol 50 mg tablet 50 mg PO BID PRN #20 tab 05/24/21 [Rx Confirmed 05/25/21] Active Medications Miscellaneous Information (Daptomycin Consult Active) 1 ea N/A UD PRN PRN Reason: Consult Stop: 06/24/21 19:24 Discontinued Medications Acetaminophen (Acetaminophen 325 Mg Tab) 650 mg PO NOW ONE Stop: 05/25/21 21:27 Last Admin: 05/25/21 21:55 Dose: Not Given Documented by: [id number] Ceftriaxone Sodium (Rocephin) 1,000 mg in 50 mls @ 100 mls/hr IV NOW STA Stop: 05/25/21 19:54 Last Infusion: 05/25/21 20:12 Dose: 0 mls/hr Documented by: [id number] Admin: 05/25/21 19:41 Dose: 100 mls/hr Documented by: [id number] Daptomycin 300 mg/ Syringe 6 mls @ 3 mls/min IV NOW ONE; Protocol Stop: 05/25/21 19:26 Last Admin: 05/25/21 19:58 Dose: 3 mls/min Documented by: [id number] Ioversol (Optiray 320 100ml) 93 ml IV ONCE ONE Stop: 05/25/21 20:46 Last Admin: 05/25/21 20:48 Dose: 93 ml Documented by: [id number] Morphine Sulfate (Morphine Sulfate 10 Mg/Ml Carp/Vial) 6 mg IV NOW STA Stop: 05/25/21 19:33 Last Admin: 05/25/21 19:41 Dose: 6 mg Documented by: [id number] Ondansetron HCl (Ondansetron Inj 2 Mg/Ml 2 Ml Vial) 4 mg IV NOW STA Stop: 05/25/21 19:33 Last Admin: 05/25/21 19:41 Dose: 4 mg Documented by: [id number] ECG Additional Comments: None on admission Code Status & VTE Plan Code Status CODE: FULL VTE: SCDs, Heparin subq VTE Prophylaxis Plan VTE Prophylaxis will be ordered: Yes PG Care Time/CCT Total # of Minutes Spent Total Time Spent with Patient: Total time spent is greater than 50% in coordination of care (as documented) at patient's floor/unit and/or counseling patient: Coding Level of Care Code 54946 Initial Inpt Care Lvl 3 Diagnoses Cellulitis L03.90 Site of cellulitis: unspecified site Left ankle pain M25.572 Left foot pain M79.672 Dyslipidemia E78.5 Hypertension I10 Nicotine dependence F17.200 (1) Cellulitis Site of cellulitis: unspecified site Qualified Code(s): L03.90 - Cellulitis, unspecified
[2021-05-25] MEDS ORDERED: MoRPHine SULFATE 4 MG/ML 1 ML CARP\\VIAL IV PRN (23:01)
[2021-05-25] MEDS ORDERED: ONDANSETRON INJ 2 MG/ML 2 ML VIAL IV PRN (23:01)
[2021-05-25] MEDS: oxyCODONE HCL IR 5 MG TAB (IMMEDIATE RELEASE) PO PRN (23:48)
[2021-05-26] MEDS ORDERED: ALBUTEROL HFA 8 GM INHALER INH PRN (00:39)
[2021-05-26] MEDS: ACETAMINOPHEN 325 MG TAB PO PRN ×2 (01:20→14:57)
[2021-05-26] MEDS: oxyCODONE HCL IR 5 MG TAB (IMMEDIATE RELEASE) PO PRN ×3 (05:54→19:31)
[2021-05-26 06:23] LABS: Basophils # (auto) 0.01 K/uL (0-0.2); Basophils % (auto) 0.1 %; Eosinophils # (auto) 0.08 K/uL (0-0.5); Eosinophils % (auto) 1.2 %; Hematocrit (blood only) 41.6 % (42-52); Hemoglobin 14.2 g/dL (14.0-18.0); Immature Granulocytes # (auto) 0.02 K/uL (0.00-0.02); Immature Granulocytes % (auto) 0.3 %; Lymphocytes # (auto) 1.52 K/uL (1.2-3.4); Lymphocytes % (auto) 22.3 %; Mean Corpuscular Hemoglobin 29.6 pg (25-34); Mean Corpuscular Hgb Conc 34.1 g/dL (32-36); Mean Corpuscular Volume 86.7 fL (80-100); Mean Platelet Volume 10.7 fL (7.4-10.4); Monocytes # (auto) 1.32 K/uL (0.11-0.59); Monocytes % (auto) 19.4 %; Neutrophils # (auto) 3.86 K/uL (1.4-6.5); Neutrophils % (auto) 56.7 %; Platelet Count 189 K/uL (130-400); RDW Coefficient of Variation 13.2 % (11.5-14.5); RDW Standard Deviation 42.2 fL (36.4-46.3); White Blood Count 6.81 K/uL (4.8-10.8)
[2021-05-26 06:54] LABS: C Reactive Protein 4.38 mg/dl (0-0.29); Calcium 9.1 mg/dl (8.5-10.1); Creatinine Clr Calc Pharmacy 130.5 ml/min; Est GFR (African American) 124.2 ml/min; Est GFR (Non-African American) 107.2 ml/min; Magnesium 2.1 mg/dl (1.8-2.4); Potassium 3.9 mmol/L (3.5-5.1)
[2021-05-26] MEDS: HEPARIN SOD 5,000 UNIT/0.5 ML VIAL SQ SCH ×2 (08:25→21:06)
--- NOTE | 2021-05-26 09:29 | Hospitalist Progress Note ---
Date of Service May 26, 2021 Assessment & Plan (1) Cellulitis: Plan: LLE cellulitis Seen in ED earlier this week, given dose of Rocephin and d/c on Keflex. Took 10 doses, with worsening erythema. Of note, was also admitting to topical steroid use for chronic b/l LE skin lesions and awaiting new appt with Bottling Room Worker locally but no appt yet (Dr Kong and will attempt to have set up at d/c) --? if this causing worsening issues vs not covering for staph as he did get [address] scan with mild soft tissue edema. No acute bony abnormality or drainable fluid collection. ESR elevated to 42 --> 32 (was 23 on 05/23) CRP 4.38 though (prior 2.31) although erythema improving Remains on Dapto/Rocephin -> continue for now Blood cultures pending Afebrile WBC wnl Pain control --> increased oxycodone to 5-10mg prn and can continue tylenol and morphine if needed Despite normal uric acid, concerns for midfoot gout and will try colchicine x 2 today to see if improvement along with dose of toradol --> if improved would continue tx Ice, elevation, rest [facility] consulted -- appreciate recs Continue to monitor improvement (2) Left ankle pain: Plan: As above (3) Left foot pain: Plan: As above- acute on chronic problem with possible localized infection (4) Dyslipidemia: Plan: Not on medications as outpatient noted last lipid panel - Most recent check in January 08- - Trigs 76; cholesterol 188; LDL 127, HDL 46 (5) Hypertension: Plan: Not on outpatient treatment- per PCP notes has been well controlled not on therapy - likely acutely elevated secondary to pain States has been "ok borderline up" at office visits but Dr Worley monitoring and no need for medications at this time. Had previously been on them but adhering to low salt diet & modifications (6) Nicotine dependence: Plan: Continues to smoke - has had chantix in the past - continue with outpatient following No nicotine patch needed at this time Rec cessation Plan: Continued inpatient monitoring for improvement --> possible transition to PO abx and discharge tomorrow if improvement/stable Admission and Anticipated Discharge Date Admission Date: May 25, 2021 Supervising Physician Co-Signing Physician Notes Attending Attestation - Chart reviewed in detail, care plan d/w DEYSI Conley. I agree w/ the field components of her documentation. Cont to Rx for ?gout and cellulitis with medications listed in Ms Conley's documentation. Neil Lafleur MD Subjective Patient evaluated this afternoon. Pain controlled with increase in oral medications to oxycodone 10mg prn. He state morphine in ER but wore off quickly and inadequate relief with 5mg oxycodone. Controlled presently but to alert if any issues. Primarily painful to lateral left ankle, within markings to lateral ankle but has erythema to forefoot which he states he believes was present last night but not marked. States trying to get in with new Dermatology, Dr Rhodes. Chronic bilaterally leg skin rash and utilizes steroid cream and mupirocin for this. Notes he believes he did continue to use steroid cream ("0.5% something") as no one had told him not to and this could have made rash worse unfortunately. Discussed would like to continue IV antibiotics for today given Rocephin in ER on Monday and then d/c on Keflex. Took 10 doses and saw PCP on Monday and states he did not notice any difference and was to see PCP today but came to ER last night after calling in and stating worsening. Noted chills/rigors last night on way up from ER but no fever. Since resolved. He thought maybe a gout attack as painful to even put a sheet to affected area, however there were concerns in the past and he had seen Dr Worley and this was not indicative of gout at that time but will ensure we check uric acid as well. Also, [facility] consultation in however he notes he believes he saw Theodore Pritchett in the past and will change consultation. No chest pain, shortness of breath,abdominal pain, nausea, vomiting or dysuria. Review of Systems Review of Systems: All systems reviewed & are unremarkable except as noted in HPI & below Physical Exam Physical Exam: PHYSICAL EXAM: General: awake, alert, no apparent distress Head: Normocephalic, atraumatic ENT: PERRL, EOMI, no pharyngeal exudate, mucous membranes moist Neuro: AAO x 3, speech clear and appropriate, strength intact bilaterally 5/5, sensation intact and equal all extremities and dermatomes, no pronator drift Chest: equal rise and fall of the chest, no accessory muscle use, no heaves or thrills, Clear to auscultation, on room air, Cardiac: Regular rate and rhythm, telemetry reviewed, skin warm dry, cap refill <3 seconds, peripheral pulses +2 no JVD, no murmur, no edema GI: NABS x 4 quadrants, soft, nontender to palpation, no rebound, guarding or tenderness : Spontaneously voiding, no pain, no CVA tenderness, MSK focused: Left foot erythema to left lateral ankle to midfoot, localized edema (decreased) --> erythema receeding to lateral ankle. overly tender to palpation or with any ROM out of proportion to expectations with flexion/extension and decreased ROM for inversion/eversion. pulses palpable. cap refill <3 seconds. sensation intact Psych: Normal mood and affect Results & Data Results & Data ([facility]) Vital Signs (Past 12 Hours) Vital Signs Temp Pulse Resp BP BP Pulse Ox 05/26/21 07:31 36.6 C 64 16 166/75 H 94 05/25/21 23:13 36.8 C 70 16 177/71 H 95 05/25/21 21:56 68 16 151/83 H 95 Laboratory Results 05/26/21 05/26/21 05/26/21 Range/Units 05:45 05:45 05:45 WBC 6.81 (4.8-10.8) K/uL RBC 4.80 (4.7-6.1) M/uL Hgb 14.2 (14.0-18.0) g/dL Hct 41.6 L (42-52) % MCV 86.7 (80-100) fL MCH 29.6 (25-34) pg MCHC 34.1 (32-36) g/dL RDW Std Deviation 42.2 (36.4-46.3) fL RDW Coeff of Bella 13.2 (11.5-14.5) % Plt Count 189 (130-400) K/uL MPV 10.7 H (7.4-10.4) fL Immature Gran % (Auto) 0.3 % Neut % (Auto) 56.7 % Lymph % (Auto) 22.3 % Carver % (Auto) 19.4 % Eos % (Auto) 1.2 % Baso % (Auto) 0.1 % Neut # (Auto) 3.86 (1.4-6.5) K/uL Lymph # (Auto) 1.52 (1.2-3.4) K/uL Carver # (Auto) 1.32 H (0.11-0.59) K/uL Eos # (Auto) 0.08 (0-0.5) K/uL Baso # (Auto) 0.01 (0-0.2) K/uL Immature Gran # (Auto) 0.02 (0.00-0.02) K/uL ESR 32 H (0-20) mm/hr Sodium 136 (136-145) mmol/L Potassium 3.9 (3.5-5.1) mmol/L Chloride 102 (98-107) mmol/L Carbon Dioxide 27 (21-32) mmol/L Anion Gap 7.0 (3-11) BUN 9 (7-18) mg/dl Creatinine 0.64 (0.6-1.4) mg/dl Est Cr Clr Drug Dosing 130.5 Est GFR ( Amer) 124.2 ml/min Est GFR (Non-Af Amer) 107.2 ml/min BUN/Creatinine Ratio 14.0 (10-20) Glucose 92 (70-99) mg/dl Lactate (0.4-2.0) mmol/L Uric Acid (2.6-7.2) mg/dl Calcium 9.1 (8.5-10.1) mg/dl Magnesium 2.1 (1.8-2.4) mg/dl Total Bilirubin (0.2-1) mg/dl AST (15-37) U/L ALT (12-78) U/L Alkaline Phosphatase (45-117) U/L C-Reactive Protein 4.38 H (0-0.29) mg/dl Total Protein (6.4-8.2) gm/dl Albumin (3.4-5.0) gm/dl Globulin (2.5-4.0) gm/dl Albumin/Globulin Ratio (0.9-2) COVID-19 Eval Order SARS-CoV-2 (PCR) (Negative) 05/25/21 05/25/21 05/25/21 Range/Units 19:50 19:50 19:43 WBC (4.8-10.8) K/uL RBC (4.7-6.1) M/uL Hgb (14.0-18.0) g/dL Hct (42-52) % MCV (80-100) fL MCH (25-34) pg MCHC (32-36) g/dL RDW Std Deviation (36.4-46.3) fL RDW Coeff of Bella (11.5-14.5) % Plt Count (130-400) K/uL MPV (7.4-10.4) fL Immature Gran % (Auto) % Neut % (Auto) % Lymph % (Auto) % Carver % (Auto) % Eos % (Auto) % Baso % (Auto) % Neut # (Auto) (1.4-6.5) K/uL Lymph # (Auto) (1.2-3.4) K/uL Carver # (Auto) (0.11-0.59) K/uL Eos # (Auto) (0-0.5) K/uL Baso # (Auto) (0-0.2) K/uL Immature Gran # (Auto) (0.00-0.02) K/uL ESR (0-20) mm/hr Sodium (136-145) mmol/L Potassium (3.5-5.1) mmol/L Chloride (98-107) mmol/L Carbon Dioxide (21-32) mmol/L Anion Gap (3-11) BUN (7-18) mg/dl Creatinine (0.6-1.4) mg/dl Est Cr Clr Drug Dosing Est GFR ( Amer) ml/min Est GFR (Non-Af Amer) ml/min BUN/Creatinine Ratio (10-20) Glucose (70-99) mg/dl Lactate (0.4-2.0) mmol/L Uric Acid 4.3 (2.6-7.2) mg/dl Calcium (8.5-10.1) mg/dl Magnesium (1.8-2.4) mg/dl Total Bilirubin (0.2-1) mg/dl AST (15-37) U/L ALT (12-78) U/L Alkaline Phosphatase (45-117) U/L C-Reactive Protein 2.31 H (0-0.29) mg/dl Total Protein (6.4-8.2) gm/dl Albumin (3.4-5.0) gm/dl Globulin (2.5-4.0) gm/dl Albumin/Globulin Ratio (0.9-2) COVID-19 Eval Order Covid19 at [facility] SARS-CoV-2 (PCR) NEGATIVE (Negative) 05/25/21 05/25/21 05/25/21 Range/Units 19:43 19:43 19:43 WBC (4.8-10.8) K/uL RBC (4.7-6.1) M/uL Hgb (14.0-18.0) g/dL Hct (42-52) % MCV (80-100) fL MCH (25-34) pg MCHC (32-36) g/dL RDW Std Deviation (36.4-46.3) fL RDW Coeff of Bella (11.5-14.5) % Plt Count (130-400) K/uL MPV (7.4-10.4) fL Immature Gran % (Auto) % Neut % (Auto) % Lymph % (Auto) % Carver % (Auto) % Eos % (Auto) % Baso % (Auto) % Neut # (Auto) (1.4-6.5) K/uL Lymph # (Auto) (1.2-3.4) K/uL Carver # (Auto) (0.11-0.59) K/uL Eos # (Auto) (0-0.5) K/uL Baso # (Auto) (0-0.2) K/uL Immature Gran # (Auto) (0.00-0.02) K/uL ESR 42 H (0-20) mm/hr Sodium 133 L (136-145) mmol/L Potassium 3.7 (3.5-5.1) mmol/L Chloride 99 (98-107) mmol/L Carbon Dioxide 27 (21-32) mmol/L Anion Gap 7.0 (3-11) BUN 9 (7-18) mg/dl Creatinine 0.66 (0.6-1.4) mg/dl Est Cr Clr Drug Dosing Not Reportable Est GFR ( Amer) 122.7 ml/min Est GFR (Non-Af Amer) 105.8 ml/min BUN/Creatinine Ratio 13.6 (10-20) Glucose 106 H (70-99) mg/dl Lactate 1.1 (0.4-2.0) mmol/L Uric Acid (2.6-7.2) mg/dl Calcium 9.0 (8.5-10.1) mg/dl Magnesium (1.8-2.4) mg/dl Total Bilirubin 0.6 (0.2-1) mg/dl AST 11 L (15-37) U/L ALT 32 (12-78) U/L Alkaline Phosphatase 72 (45-117) U/L C-Reactive Protein (0-0.29) mg/dl Total Protein 8.4 H (6.4-8.2) gm/dl Albumin 4.1 (3.4-5.0) gm/dl Globulin 4.3 H (2.5-4.0) gm/dl Albumin/Globulin Ratio 1.0 (0.9-2) COVID-19 Eval Order SARS-CoV-2 (PCR) (Negative) 05/25/21 Range/Units 19:43 WBC 8.44 (4.8-10.8) K/uL RBC 4.89 (4.7-6.1) M/uL Hgb 14.8 (14.0-18.0) g/dL Hct 42.1 (42-52) % MCV 86.1 (80-100) fL MCH 30.3 (25-34) pg MCHC 35.2 (32-36) g/dL RDW Std Deviation 41.5 (36.4-46.3) fL RDW Coeff of Bella 13.1 (11.5-14.5) % Plt Count 196 (130-400) K/uL MPV 10.8 H (7.4-10.4) fL Immature Gran % (Auto) 0.1 % Neut % (Auto) 75.6 % Lymph % (Auto) 14.1 % Carver % (Auto) 9.6 % Eos % (Auto) 0.6 % Baso % (Auto) 0.0 % Neut # (Auto) 6.38 (1.4-6.5) K/uL Lymph # (Auto) 1.19 L (1.2-3.4) K/uL Carver # (Auto) 0.81 H (0.11-0.59) K/uL Eos # (Auto) 0.05 (0-0.5) K/uL Baso # (Auto) 0.00 (0-0.2) K/uL Immature Gran # (Auto) 0.01 (0.00-0.02) K/uL ESR (0-20) mm/hr Sodium (136-145) mmol/L Potassium (3.5-5.1) mmol/L Chloride (98-107) mmol/L Carbon Dioxide (21-32) mmol/L Anion Gap (3-11) BUN (7-18) mg/dl Creatinine (0.6-1.4) mg/dl Est Cr Clr Drug Dosing Est GFR ( Amer) ml/min Est GFR (Non-Af Amer) ml/min BUN/Creatinine Ratio (10-20) Glucose (70-99) mg/dl Lactate (0.4-2.0) mmol/L Uric Acid (2.6-7.2) mg/dl Calcium (8.5-10.1) mg/dl Magnesium (1.8-2.4) mg/dl Total Bilirubin (0.2-1) mg/dl AST (15-37) U/L ALT (12-78) U/L Alkaline Phosphatase (45-117) U/L C-Reactive Protein (0-0.29) mg/dl Total Protein (6.4-8.2) gm/dl Albumin (3.4-5.0) gm/dl Globulin (2.5-4.0) gm/dl Albumin/Globulin Ratio (0.9-2) COVID-19 Eval Order SARS-CoV-2 (PCR) (Negative) Diagnostic Findings Ankle CT 05/25/21 19:25 CT ankle LT w con INDICATION: [place] ^B12B LABS ^pain, fever, swelling TECHNIQUE: Multidetector row helical CT of the left ankle was performed without intravenous contrast. Coronal and sagittal reformations were obtained. Automated dose lowering techniques and/or adjustment according to patient size were utilized for this examination. Comparison: None available at the time of this dictation. FINDINGS: The osseous structures are without fracture or dislocation. No joint effusion is seen. The joint spaces are maintained. Mild soft tissue edema is seen. IMPRESSION: Mild soft tissue edema. No acute bony abnormality or drainable fluid collection. ACT 112: Negative or not required by law. Electronically signed by: Piter Do M.D. 05/25/2021 9:01 PM PG Care Time/CCT Total # of Minutes Spent Total Time Spent with Patient: Total time spent is greater than 50% in coordination of care (as documented) at patient's floor/unit and/or counseling patient: Coding Level of Care Code 18865 Subseq Hosp Care Lvl 3 Diagnoses Cellulitis L03.90 Site of cellulitis: unspecified site Left ankle pain M25.572 Left foot pain M79.672 Dyslipidemia E78.5 Hypertension I10 Nicotine dependence F17.200 (1) Cellulitis Site of cellulitis: unspecified site Qualified Code(s): L03.90 - Cellulitis, unspecified
[2021-05-26] MEDS ORDERED: KETOROLAC TROMETHAMINE 15 MG/ML VIAL IV ONE (15:07)
[2021-05-26] MEDS ORDERED: COLCHICINE 0.6 MG TAB PO ONE ×2 (15:15→19:15)
[2021-05-26] MEDS: DAPTOmycin 275 MG in SYRINGE 0 ML IV SCH (19:32)
[2021-05-26] MEDS: cefTRIAXone SODIUM 2,000 MG in DEXTROSE 5% 50 ML IV SCH (19:41)
[2021-05-27 06:07] LABS: Basophils # (auto) 0.01 K/uL (0-0.2); Basophils % (auto) 0.2 %; Eosinophils # (auto) 0.21 K/uL (0-0.5); Eosinophils % (auto) 3.2 %; Hematocrit (blood only) 41.3 % (42-52); Hemoglobin 14.7 g/dL (14.0-18.0); Immature Granulocytes # (auto) 0.01 K/uL (0.00-0.02); Immature Granulocytes % (auto) 0.2 %; Lymphocytes # (auto) 1.21 K/uL (1.2-3.4); Lymphocytes % (auto) 18.4 %; Mean Corpuscular Hemoglobin 30.8 pg (25-34); Mean Corpuscular Hgb Conc 35.6 g/dL (32-36); Mean Corpuscular Volume 86.4 fL (80-100); Mean Platelet Volume 10.6 fL (7.4-10.4); Monocytes # (auto) 1.05 K/uL (0.11-0.59); Monocytes % (auto) 15.9 %; Neutrophils % (auto) 62.1 %; Platelet Count 180 K/uL (130-400); RDW Coefficient of Variation 12.9 % (11.5-14.5); RDW Standard Deviation 41.3 fL (36.4-46.3); Red Blood Count 4.78 M/uL (4.7-6.1); White Blood Count 6.59 K/uL (4.8-10.8)
[2021-05-27 06:47] LABS: BUN Creatinine Ratio 23.7 (10-20); Calcium 8.9 mg/dl (8.5-10.1); Creatinine Clr Calc Pharmacy 130.5 ml/min; Est GFR (African American) 124.2 ml/min; Est GFR (Non-African American) 107.2 ml/min; Magnesium 2.2 mg/dl (1.8-2.4); Potassium 3.9 mmol/L (3.5-5.1)
[2021-05-27] MEDS ORDERED: KETOROLAC TROMETHAMINE 15 MG/ML VIAL IV ONE (08:13)
--- NOTE | 2021-05-27 08:15 | Hospitalist Progress Note ---
Date of Service May 27, 2021 Assessment & Plan (1) Cellulitis: Plan: LLE cellulitis Seen in ED earlier this week, given dose of Rocephin and d/c on Keflex. Took 10 doses, with worsening erythema. Of note, was also admitting to topical steroid use for chronic b/l LE skin lesions and awaiting new appt with Housing Management Officer locally but no appt yet (Dr Kong and will attempt to have set up at d/c) --? if this causing worsening issues vs not covering for staph as he did get [address] scan with mild soft tissue edema. No acute bony abnormality or drainable fluid collection. ESR elevated to 42 --> 32 (was 23 on 05/23) CRP 4.38 although erythema improving Remains on Dapto/Rocephin -> continue for now and will de-escalate to include bactrim at d/c given prior ineffectiveness of keflex alone and concerns for staph infection Blood cultures NGTD Afebrile WBC wnl Colchicine x 2 yesterday and toradol effective most at pain control, raising suspicion for maybe combo gout/infectious process despite normal uric acid Continue ice/elevation Ortho consulted --> Recs for bactrim, toradol 30mg IV Q8H while inpatient and steroids. F/u with office if not improving for further evaluation but no sx tenosynovitis on exam. If continued to improve tomorrow possible d/c in AM Afebrile WBC wnl Continue to monitor response (2) Left ankle pain: Plan: As above much improved (3) Left foot pain: Plan: As above- acute on chronic problem with possible localized infection improving with tx as above (4) Dyslipidemia: Plan: Not on medications as outpatient noted last lipid panel - Most recent check in January 08- - Trigs 76; cholesterol 188; LDL 127, HDL 46 (5) Hypertension: Plan: Not on outpatient treatment- per PCP notes has been well controlled not on therapy - likely acutely elevated secondary to pain States has been "ok borderline up" at office visits but Dr Worley monitoring and no need for medications at this time. Had previously been on them but adhering to low salt diet & modifications BP 148/75 (6) Nicotine dependence: Plan: Continues to smoke - has had chantix in the past - continue with outpatient following No nicotine patch needed at this time Rec cessation Plan: Continued inpatient monitoring for improvement --> possible transition to PO abx and discharge tomorrow if improvement/stable on anti-inflammatories and steroids for infectious/inflammatory process as above Admission and Anticipated Discharge Date Admission Date: May 25, 2021 Supervising Physician Co-Signing Physician Notes Attending Attestation - Chart reviewed in detail, care plan d/w DEYSI Conley. I agree w/ the field components of her documentation. Cont to Rx for ?gout and cellulitis with medications listed in Ms Conley's documentation. Appreciate ortho consultation & recs. Neil Lafleur MD Subjective Patient evaluated this afternoon. Doing better. Pain improved with toradol the most. Erythema improved. Less painful and swollen today. Able to stand and put some weight on it today which is new from yesterday as he was unable to bear much weight at all. Eval w Dr Torres at bedside with recs to continue abx , schedule toradol 30mg IV Q8 while inpatient and steroids. Can d/c if continues to improve tomorrow and can have follow up with [facility] if not getting any better in office. No fever, chills, chest pain, shortness of breath, n/v/d at this time. Questions/concerns addressed. Review of Systems Review of Systems: All systems reviewed & are unremarkable except as noted in HPI & below Physical Exam Physical Exam: PHYSICAL EXAM: General: awake, alert, no apparent distress Head: Normocephalic, atraumatic ENT: PERRL, EOMI, no pharyngeal exudate, mucous membranes moist Neuro: AAO x 3, speech clear and appropriate, strength intact bilaterally 5/5, sensation intact and equal all extremities and dermatomes, no pronator drift Chest: equal rise and fall of the chest, no accessory muscle use, no heaves or thrills, Clear to auscultation, on room air, Cardiac: Regular rate and rhythm, telemetry reviewed, skin warm dry, cap refill <3 seconds, peripheral pulses +2 no JVD, no murmur, no edema GI: NABS x 4 quadrants, soft, nontender to palpation, no rebound, guarding or tenderness : Spontaneously voiding, no pain, no CVA tenderness, MSK/Skin: LLE with some edema to anterolateral aspect of forefoot, decreased. erythema MUCH improved. able to dorsiflex/plantar flex with decreased pain as well as decreased tenderness to dorsum of foot. Able to stand and place some weight on foot which is new from yesterday NVI, pulses palpable cap refill <3 seconds Psych: Normal mood and affect Results & Data Results & Data ([facility]) Vital Signs (Past 12 Hours) Vital Signs Temp Pulse Resp BP Pulse Ox 05/27/21 07:09 36.8 C 68 16 142/69 H 92 05/26/21 22:29 36.8 C 60 18 127/65 93 Laboratory Results 05/27/21 05/27/21 Range/Units 05:42 05:42 WBC 6.59 (4.8-10.8) K/uL RBC 4.78 (4.7-6.1) M/uL Hgb 14.7 (14.0-18.0) g/dL Hct 41.3 L (42-52) % MCV 86.4 (80-100) fL MCH 30.8 (25-34) pg MCHC 35.6 (32-36) g/dL RDW Std Deviation 41.3 (36.4-46.3) fL RDW Coeff of Bella 12.9 (11.5-14.5) % Plt Count 180 (130-400) K/uL MPV 10.6 H (7.4-10.4) fL Immature Gran % (Auto) 0.2 % Neut % (Auto) 62.1 % Lymph % (Auto) 18.4 % Jefferson % (Auto) 15.9 % Eos % (Auto) 3.2 % Baso % (Auto) 0.2 % Neut # (Auto) 4.10 (1.4-6.5) K/uL Lymph # (Auto) 1.21 (1.2-3.4) K/uL Jefferson # (Auto) 1.05 H (0.11-0.59) K/uL Eos # (Auto) 0.21 (0-0.5) K/uL Baso # (Auto) 0.01 (0-0.2) K/uL Immature Gran # (Auto) 0.01 (0.00-0.02) K/uL Sodium 135 L (136-145) mmol/L Potassium 3.9 (3.5-5.1) mmol/L Chloride 103 (98-107) mmol/L Carbon Dioxide 28 (21-32) mmol/L Anion Gap 4.0 (3-11) BUN 15 D (7-18) mg/dl Creatinine 0.64 (0.6-1.4) mg/dl Est Cr Clr Drug Dosing 130.5 ml/min Est GFR ( Amer) 124.2 ml/min Est GFR (Non-Af Amer) 107.2 ml/min BUN/Creatinine Ratio 23.7 H (10-20) Glucose 89 (70-99) mg/dl Calcium 8.9 (8.5-10.1) mg/dl Magnesium 2.2 (1.8-2.4) mg/dl PG Care Time/CCT Total # of Minutes Spent Total Time Spent with Patient: Total time spent is greater than 50% in coordination of care (as documented) at patient's floor/unit and/or counseling patient: Coding Level of Care Code 14861 Subseq Hosp Care Lvl 3 Diagnoses Cellulitis L03.90 Site of cellulitis: unspecified site Left ankle pain M25.572 Left foot pain M79.672 Dyslipidemia E78.5 Hypertension I10 Nicotine dependence F17.200 (1) Cellulitis Site of cellulitis: unspecified site Qualified Code(s): L03.90 - Cellulitis, unspecified
[2021-05-27] MEDS ORDERED: COLCHICINE 0.6 MG TAB PO SCH (09:00)
[2021-05-27] MEDS: HEPARIN SOD 5,000 UNIT/0.5 ML VIAL SQ SCH ×2 (09:35→19:46)
[2021-05-27] MEDS: DOCUSATE SODIUM/SENNA 50/8.6MG TAB PO SCH (09:37)
[2021-05-27] MEDS ORDERED: predniSONE 20 MG TAB PO SCH (12:45)
--- NOTE | 2021-05-27 12:57 | Orthopedic Consultation ---
Date of Service May 27, 2021 Assessment & Plan (1) Acute left ankle pain: It is difficult to tell whether this is an acute inflammatory reaction or a cellulitis. He responded well to the Toradol. He has been on IV antibiotics since admission. I talked to the hospitalist DEYSI personally. At this point he is improving. We will keep him another 24 hours. I recommended continuing Toradol IV 30 mg every 8 hours. We will also continue the antibiotics. He can be up and weightbearing as tolerated as pain allows. If he is improved tomorrow he can be discharged home. He should be discharged on oral antibiotics for another week. He can also take some anti-inflammatory medications. He can follow-up with orthopedics as needed. I told him that if his symptoms worsen once again after discharge he can come to our office rather than going to the emergency room. History of Present Illness Reason for Consultation: Left ankle pain . Requesting Physician: . Attending Physician: Neil Wild Miquel Trujillo is a pleasant 60-year-old male who has been dealing with a weeklong history of left ankle pain. His ankle began hurting him last week after work. He noticed a small scab as well as some redness of his left ankle. He came to the emergency room was given a dose of Rocephin and started on oral Keflex and discharged home. Unfortunately his symptoms worsened. He was unable to ambulate. He had a lot of pain in the anterior lateral aspect of the left ankle. He came back to the emergency room and was started on IV antibiotic therapy and admitted to the hospital. His white blood cell count was normal and his sed rate and CRP were elevated. X-rays and CT scan of the ankle were n egative. He was not responding to the antibiotics but then he was given a dose of Toradol and that seemed to give him the most relief. His lab work-up was negative for gout. Orthopedics was consulted to evaluate and treat. . Allergies Allergy/AdvReac Type Severity Reaction Status Date / Time No Known Drug Allergies Allergy Unknown Verified 05/25/21 20:28 Home Medications Medication Instructions Recorded Confirmed Type cephalexin 500 mg capsule 500 mg PO Q6H 10 Days #40 cap 05/23/21 05/25/21 Rx tramadol 50 mg tablet 50 mg PO BID PRN #20 tab 05/24/21 05/25/21 Rx Past Med/Surg History Medical History Anemia Anxiety Arthralgia of multiple sites Cardiomegaly Degenerative disc disease Depression Dyslipidemia History of cigarette smoking Hyperlipidemia Hypertension Hypertension Lumbar disc herniation Lumbar postlaminectomy syndrome Lumbar radiculopathy Mediastinal lymphadenopathy Neck pain Neck pain Nicotine dependence Onychomycosis Osteoarthritis Stenosis of left internal carotid artery Tendinitis, de Quervain's Tinea corporis Surgical History History of colonoscopy History of lumbar discectomy History of repair of left rotator cuff History of tonsillectomy and adenoidectomy History of tooth extraction wisdom teeth Social History Smoking Status: Current every day smoker Tobacco Type: Cigarettes Cigarettes Per Day: 20; Second Hand Exposure: Yes (parents smoked); Tobacco Cessation Education Requested by Patient: No Hx Alcohol Use: No Hx Substance Use: No Preferred Language: Northern Irish Communication Ability: Effective Visual Impairment: Limited Hearing Ability: Normal Geophysical Observer Required: No Beliefs That Will Affect Care: None marital status: Current Living Situation: Spouse Current Living Situation Comment: lives with and kids current occupational status: employed 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 Physical Exam Examination of the left ankle is apparently improved from initial presentation. He is a little bit of swelling on the anterolateral aspect. There is a little bit of redness but not much. He is able to do dorsiflexion plantarflexion of his ankle without pain. I had him stand on his ankle and is able to put about 50% of his weight on it. . Constitutional WD/WN, vitals as above Eyes PERRL, conjunctivae normal, anicteric sclerae ENMT external ear and nose normal, oropharynx normal Neck trachea midline, no thyromegaly Respiratory normal respiratory effort Cardiovascular RRR, no murmur, no edema Gastrointestinal (Abdomen) normal bowel sounds, soft, nontender, no hepatosplenomegaly Psychiatric A+Ox3, euthymic affect Results & Data Results & Data Laboratory Results . Diagnostic Findings X-rays of the left ankle reviewed and are essentially negative. CT scan of the left ankle was reviewed did not see any evidence of fracture or bony destruction. . PG Care Time/CCT Total # of Minutes Spent Total Time Spent with Patient: Total time spent is greater than 50% in coordination of care (as documented) at patient's floor/unit and/or counseling patient: Coding Level of Care Code 42847 Inpt Consult Level 4 Diagnoses Acute left ankle pain M25.572
[2021-05-27] MEDS: KETOROLAC 30 MG/ML VIAL IV SCH ×2 (15:19→21:55)
[2021-05-27] MEDS: cefTRIAXone SODIUM 2,000 MG in DEXTROSE 5% 50 ML IV SCH (19:40)
[2021-05-27] MEDS: DAPTOmycin 275 MG in SYRINGE 0 ML IV SCH (19:41)
[2021-05-28] MEDS: KETOROLAC 30 MG/ML VIAL IV SCH (06:32)
[2021-05-28 06:35] LABS: Basophils # (auto) 0.01 K/uL (0-0.2); Basophils % (auto) 0.1 %; Eosinophils # (auto) 0.05 K/uL (0-0.5); Eosinophils % (auto) 0.7 %; Hematocrit (blood only) 42.1 % (42-52); Hemoglobin 14.8 g/dL (14.0-18.0); Immature Granulocytes # (auto) 0.01 K/uL (0.00-0.02); Immature Granulocytes % (auto) 0.1 %; Lymphocytes # (auto) 1.26 K/uL (1.2-3.4); Lymphocytes % (auto) 18.2 %; Mean Corpuscular Hemoglobin 30.5 pg (25-34); Mean Corpuscular Hgb Conc 35.2 g/dL (32-36); Mean Corpuscular Volume 86.6 fL (80-100); Mean Platelet Volume 10.9 fL (7.4-10.4); Monocytes # (auto) 0.76 K/uL (0.11-0.59); Neutrophils # (auto) 4.84 K/uL (1.4-6.5); Neutrophils % (auto) 69.9 %; Platelet Count 212 K/uL (130-400); RDW Standard Deviation 41.5 fL (36.4-46.3); Red Blood Count 4.86 M/uL (4.7-6.1); White Blood Count 6.93 K/uL (4.8-10.8)
[2021-05-28 07:00] LABS: BUN Creatinine Ratio 42.3 (10-20); C Reactive Protein 4.19 mg/dl (0-0.29); Creatinine Clr Calc Pharmacy 126.5 ml/min; Est GFR (African American) 122.7 ml/min; Est GFR (Non-African American) 105.8 ml/min; Magnesium 2.6 mg/dl (1.8-2.4); Potassium 4.3 mmol/L (3.5-5.1)
[2021-05-28] MEDS: DOCUSATE SODIUM/SENNA 50/8.6MG TAB PO SCH (08:45)
[2021-05-28] MEDS: HEPARIN SOD 5,000 UNIT/0.5 ML VIAL SQ SCH (08:45)
[2021-05-28] MEDS ORDERED: COLCHICINE 0.6 MG TAB PO SCH (09:00)
--- NOTE | 2021-05-28 09:34 | Hospitalist Progress Note ---
Date of Service May 28, 2021 Assessment & Plan (1) Cellulitis: Plan: LLE cellulitis Seen in ED earlier this week, given dose of Rocephin and d/c on Keflex. Took 10 doses, with worsening erythema. Of note, was also admitting to topical steroid use for chronic b/l LE skin lesions and awaiting new appt with Novelty Twister Operator locally but no appt yet (Dr Kong and will attempt to have set up at d/c) --? if this causing worsening issues vs not covering for staph as he did get [address] scan with mild soft tissue edema. No acute bony abnormality or drainable fluid collection. ESR elevated to 42 --> 32 (was 23 on 05/23) CRP 4.38 although erythema improving Remains on Dapto/Rocephin -> continue for now and will de-escalate to include bactrim at d/c given prior ineffectiveness of keflex alone and concerns for staph infection Blood cultures NGTD Afebrile WBC wnl Colchicine x 2 yesterday and toradol effective most at pain control, raising suspicion for maybe combo gout/infectious process despite normal uric acid Continue ice/elevation Ortho consulted --> Recs for bactrim, toradol 30mg IV Q8H while inpatient and steroids. F/u with office if not improving for further evaluation but no sx tenosynovitis on exam. If continued to improve tomorrow possible d/c in AM Afebrile WBC wnl Continue to monitor response (2) Left ankle pain: Plan: As above much improved (3) Left foot pain: Plan: As above- acute on chronic problem with possible localized infection improving with tx as above (4) Dyslipidemia: Plan: Not on medications as outpatient noted last lipid panel - Most recent check in January 08- - Trigs 76; cholesterol 188; LDL 127, HDL 46 (5) Hypertension: Plan: Not on outpatient treatment- per PCP notes has been well controlled not on therapy - likely acutely elevated secondary to pain States has been "ok borderline up" at office visits but Dr Worley monitoring and no need for medications at this time. Had previously been on them but adhering to low salt diet & modifications BP 148/75 (6) Nicotine dependence: Plan: Continues to smoke - has had chantix in the past - continue with outpatient following No nicotine patch needed at this time Rec cessation Plan: Continued inpatient monitoring for improvement --> possible transition to PO abx and discharge tomorrow if improvement/stable on anti-inflammatories and steroids for infectious/inflammatory process as above Admission and Anticipated Discharge Date Admission Date: May 25, 2021 Results & Data Results & Data ([facility]) Vital Signs (Past 12 Hours) Vital Signs Temp Pulse Resp BP Pulse Ox 05/28/21 06:41 36.5 C 52 L 15 171/73 H 94 05/27/21 22:32 36.4 C L 101 H 17 157/71 H 95 PG Care Time/CCT Total # of Minutes Spent Total Time Spent with Patient: Total time spent is greater than 50% in coordination of care (as documented) at patient's floor/unit and/or counseling patient: Coding Diagnoses Cellulitis L03.90 Site of cellulitis: unspecified site Left ankle pain M25.572 Left foot pain M79.672 Dyslipidemia E78.5 Hypertension I10 Nicotine dependence F17.200 (1) Cellulitis Site of cellulitis: unspecified site Qualified Code(s): L03.90 - Cellulitis, unspecified
--- NOTE | 2021-05-28 10:59 | Discharge Summary ---
Date of Service May 28, 2021 Admission HPI Per Admitting Provider 60 YOM with past medical history of: HTN, HLD, DJD, Smoker, chronic back pain, chronic left foot pain. Patient comes in today for worsening in erythema, swelling, and pain to his left foot and ankle. The patient was originally seen in the EMD on 05/23/21 for left ankle pain that started on , this started after he was walking around at work and his boots got wet and his feet got wet. He has some chronic tinea pedis and has a possible entry point for infection at his left dorsal surface of his foot. He was given a dose of Rocephin and discharged with oral Keflex after case was discussed with [facility]. The patient followed up with his PCP yesterday and was also recommended rest ice and compression. He has tried to stay off it using crutches. Today he comes in with increase in swelling at the lateral surface of his ankle, he reports decrease flexion and extension secondary to pain. He had a CT scan of the foot and ankle performed in the EMD that revealed mild soft tissue edema with no osseous structures or joint effusion noted. Patient was given Daptomycin IV and Rocephin IV in the EMD. Blood cultures were drawn prior to antibiotic dosing. The patient has a normal WBC count, with ESR elevated to 40 and CRP at 2.31. The patient will be admitted to continue antibiotic therapy, Orthopaedics will be consulted as he follows with them for his chronic left foot pain and change from original presentation. Continue with elevation. Patient has received his COVID vaccine and his COVID test is: NEGATIVE on admission Admission Exam Per Admitting Provider PHYSICAL EXAM: General: awake, alert, no apparent distress Head: Normocephalic, atraumatic ENT: PERRL, EOMI, no pharyngeal exudate, mucous membranes moist Neuro: AAO x 3, speech clear and appropriate, strength intact bilaterally 5/5, sensation intact and equal all extremities and dermatomes, no pronator drift Chest: equal rise and fall of the chest, no accessory muscle use, no heaves or thrills, Clear to auscultation, on room air, Cardiac: Regular rate and rhythm, telemetry reviewed, skin warm dry, cap refill <3 seconds, peripheral pulses +2 no JVD, no murmur, no edema GI: NABS x 4 quadrants, soft, nontender to palpation, no rebound, guarding or tenderness : Spontaneously voiding, no pain, no CVA tenderness, MSK focused: Left foot erythema to left lateral ankle to midfoot, localized edema, pain to the midfoot and great toe, pain with flexion and extension- ROM is decreased secondary to pain response, decreased ability for inversion and eversion, pulses strong and palpable, sensation intact. His proximal and surrounding skin marker from previous marking appears decreased Psych: Normal mood and affect Principal Diagnosis Cellulitis vs Gout Discharge Exam General: awake, alert, no apparent distress, sitting up in chair at bedside Head: Normocephalic, atraumatic ENT: PERRL, EOMI, no pharyngeal exudate, mucous membranes slightly dry (admits to not drinking much water this morning) Neuro: AAO x 3, speech clear and appropriate, strength intact bilaterally 5/5, sensation intact and equal all extremities and dermatomes, no pronator drift Chest: equal rise and fall of the chest, no accessory muscle use, no heaves or thrills, Clear to auscultation, on room air, Cardiac: Regular rate and rhythm, no r/m/g GI: +BS, soft, non-tender : no Hough MSK/Skin -- LLE with significant improvement in erythema to lateral and midfoot, decreased tenderness and increased ROM. decreased discomfort to dorsum of foot and able to stand and put about 60% of his weight on it (previously unable). NVI, pulses palpable. cap refill <3 seconds chronic b/l LE rash -- no drainage/tenderness Psych: AOx4, euthymic Discharge Data Allergies Allergy/AdvReac Type Severity Reaction Status Date / Time No Known Drug Allergies Allergy Unknown Verified 06/02/21 10:51 Consultations 05/25/21 20:36 ED Decision to Admit Stat 05/25/21 23:01 Consult Orthopedic Surgery Routine Ordered Studies Ankle CT 05/25/21 19:25 CT ankle LT w con INDICATION: MN ^B12B LABS ^pain, fever, swelling TECHNIQUE: Multidetector row helical CT of the left ankle was performed without intravenous contrast. Coronal and sagittal reformations were obtained. Automated dose lowering techniques and/or adjustment according to patient size were utilized for this examination. Comparison: None available at the time of this dictation. FINDINGS: The osseous structures are without fracture or dislocation. No joint effusion is seen. The joint spaces are maintained. Mild soft tissue edema is seen. IMPRESSION: Mild soft tissue edema. No acute bony abnormality or drainable fluid collection. ACT 112: Negative or not required by law. Electronically signed by: Piter Do M.D. 05/25/2021 9:01 PM Hospital Course (1) Cellulitis: LLE cellulitis Seen in ED earlier this week, given dose of Rocephin and d/c on Keflex. Took 10 doses, with worsening erythema. Of note, was also admitting to topical steroid use for chronic b/l LE skin lesions and awaiting new appt with [facility] locally but no appt yet Dr Kong --? if this causing worsening issues vs not covering for staph as he did get 10 doses of cephalosporin Ortho consulted -- Dr Torres had seen in the past for his shoulder. No concerns for tenosynovitis CT scan with mild soft tissue edema. No acute bony abnormality or drainable fluid collection. ESR 42--> 32 CRP 4.38--> 4.1 ICe/elevation On Dapto/Rocephin on admission --> de-escalated to Bactrim at d/c given prior in effectiveness with keflex to cover better for for staph and this was continued BCx remain NGTD after 48h Remained afebrile, WBC wnl Uric acid wnl however concerns for gout and significant improvement in pain control and ROM with colchicine x 2 doses and scheduled Toradol while inpatient after discussion with Dr Torres and given course of Diclofenac at discharge in addition to the Bactrim. Of note did get 1x dose prednisone 40mg while inpatient for the gout as well. Rec to avoid any topical steroids as previously using for his rash and to follow up with Derm as previously arranging (2) Left ankle pain: As above much improved (3) Left foot pain: As above- acute on chronic problem with possible localized infection improving with tx as above (4) Dyslipidemia: Not on medications as outpatient noted last lipid panel - Most recent check in January 08- - Trigs 76; cholesterol 188; LDL 127, HDL 46 (5) Hypertension: Not on outpatient treatment- per PCP notes has been well controlled not on therapy - likely acutely elevated secondary to pain States has been "ok borderline up" at office visits but Dr Worley monitoring and no need for medications at this time. Had previously been on them but adhering to low salt diet & modifications BP stable but slightly elevated 2nd to pain --> recommended to drink lots of water while utilizing the NSAIDs to prevent kidney damage (6) Nicotine dependence: Continues to smoke - has had chantix in the past - continue with outpatient following No nicotine patch needed at this time Rec cessation Transitioned to Bactrim, Diclofenac at discharge Can follow up with Dr. Torres at discharge if worsens for further eval per conversation with patient and ortho at bedside Total Time Total Time Spent Total Time Spent (In Minutes): 60 Discharge Plan Discharge Items Patient Disposition: Home - Self-Care Reason For Visit: SKIN AND SOFT TISSURE INFECTION OF FOOT Discharge Diagnosis: Cellulitis vs Gout vs Both Condition on Discharge: Fair Goals: You have been hospitalized for an acute medical problem. During your stay at [facility], we have made an effort to correct the problem that brought you to the hospital while keeping you as comfortable as possible. Medications were used to bring your condition under control and your discharge instructions will include directions for any medications you should take after leaving the hospital. Please make sure you see your Primary Care Provider as part of your follow up plan. Activity: Resume your previous activity Activity Comment: advance activity as tolerated Weightbearing Comment: weight bearing as tolerated Non-emergency contact: Primary Care Provider Call non-emergency contact if: you have any medication questions Follow-up/Referrals: Keisha Briseno CRNP [Primary Care Provider] - Cali Torres DO [Physician] - (1-2 weeks) Roger Kong MD [Physician] - (b/l LE rash, chronic) Diet: Heart Healthy Addtl Attending Provider Instructions: You have been hospitalized for a cellulitis. Imaging did not show signs of any abscess or infection to the bone. There are concerns for possible infection, along with gout, so the use of antiinflammatory agents were used with antibiotics to help bring inflammation/infection down which seemed to be most effective for your pain control. Orthopedics was consulted and agrees with antibiotics in the form of Bactrim at discharge given prior incomplete response with Keflex. This will be TWICE daily for 1 more week (six additional days). Also will treat possible gout with NSAIDs, and you have been sent prescription to use diclofenac 75 mg TWICE daily as needed for pain control/treatment of gout. Prescription has also been sent for this. As discussed, it is VERY IMPORTANT to stay well hydrated and drink plenty of water with these medications. Use of crutches with ambulation until you are back at your baseline and make sure to keep your legs elevated as much as possible to promote healing. You may follow up with orthopedics in the next 1-2 weeks if not improving as discussed by Dr. Torres. Please follow up with your PCP in the next week to monitor your progress. You should also consider following up with Dermatology, and the name of the provider out front is Dr. Roger Kong. Office number is to call and schedule if you do not hear from them. Please return to the emergency department with any fever, chills, chest pain, bleeding from stool or urine, shortness of breath, or for any other symptoms th at are concerning for you. It has been a pleasure being a part of the medical team providing for you while you have been in the hospital. Take care! Pending Studies at Discharge: Yes Studies:: Blood cultures -- no growth to date Stand-Alone Forms: My [facility] [place], Work[place]School Release, Smoking Cessation Medications and DC Order Prescriptions: New diclofenac sodium 75 mg tablet,delayed release (DR/EC) 75 mg PO BID Qty: 20 RF: 0 Discontinued tramadol 50 mg tablet 50 mg PO BID PRN (Reason: pain) Qty: 20 RF: 0 cephalexin 500 mg capsule 500 mg PO Q6H 10 Days Qty: 40 RF: 0 No Action desoximetasone 0.25 % cream 1 applic topical BID Qty: 60 RF: 1 Discharge Orders: Discharge Order (Routine); Ordered 05/28/21 Ordered By: Gaby Lawson/Other Patient Handouts: Discharge Instructions for Cellulitis Admission Data Admit Date/Time: 05/25/21 21:31 Attending Provider: Neil Lafleur Admit Provider: Nenita Briseno Primary Care Provider: Keisha Briseno. Other Providers: Nenita Briseno ; Cali Torres Other Interventions: Discharge Summary Assessment (RN) Last Done: 05/28/21 11:13 Supervising Physician Co-Signing Physician Notes Attending Attestation and Discharge Note - Pt seen/examined, chart reviewed, care plan d/w DEYSI Conley. I agree with the field components of her discharge summary. 60yo male who presented with difficulty weight-bearing due to left foot & ankle pain/swelling. He was treated initially for cellulitis of the left foot. Despite such his pain & erythema continued. He was initiated on medications for possible gout and within 24 hours his left foot/ankle complaints were improved. At discharge he will complete a course of antibiotics for cellulitis of the left foot as well as NSAIDs (voltaren 75 BID) for possible gout of the L foot. Discharge exam: gen - NAD heart - RRR, s1 s2, no murmur lungs - CTA b/l abd - soft NT ND BS+ ext - no edema, pulses 2+ b/l musculo - L foot - minimal swelling mid-foot; minimal swelling ankle; minimal tenderness to palpation L foot/ankle; passive ROM of L ankle intact Neil Lafleur MD Coding Level of Care Code D/C DAY MANAGEMENT >30 MINS Diagnoses Cellulitis L03.90 Site of cellulitis: unspecified site Left ankle pain M25.572 Left foot pain M79.672 Dyslipidemia E78.5 Hypertension I10 Nicotine dependence F17.200
[2021-05-28] MEDS ORDERED: SULFAMETHOXAZOLE/TRIMETHOPRIM DS 800/160MG TAB PO SCH (21:00)
== END 2021-05-28 12:12 | disposition home or self-care (01) ==
LOC: ED 17:03 → INTOOBSV 21:31 → SUATTDRO 21:31 → 3N 21:31